=== PATIENT | male | born 1985 | race Caucasian/White ===

== ENCOUNTER 2021-05-22 13:52 | Inpatient (IN) | payer OTHER ==
[~2021-05-22] VITALS: Ht 180.3 cm; Wt 174.6 kg
--- NOTE | 2021-05-22 14:00 | NUR ---
[id number] HOME C/O SOB X 1 MONTH. O2 SAT 80% ON ROOM AIR. CONNECTED TO THE MONITOR AND PULSE OX. KEPT COMFORTABLE, WILL CONTINUE TO MONITOR ACCORDINGLY. ON 02 @ 6LPM VIA NC.
--- NOTE | 2021-05-22 14:05 | NUR ---
CHAPLAIN RESIDENT AT PT'S BEDSIDE
--- NOTE | 2021-05-22 14:18 | NUR ---
COVID TEST COLLECTED AND SENT TO LAB
[2021-05-22 14:24] LABS: BASOPHILS % (AUTO) 0.3 % (0.0-2.0); EOSINOPHILS % (AUTO) 0.9 % (0.0-6.0); HEMATOCRIT 51 % (39-51); HEMOGLOBIN 17.2 g/dL (13.5-17.5); LYMPHOCYTES # (AUTO) 0.8 K/uL (0.8-4.8); LYMPHOCYTES % (AUTO) 10.6 % (20.0-44.0); MEAN CORPUSCULAR HGB CONC 34 g/dl (31.0-36.0); MEAN CORPUSCULAR VOLUME 99 fL (80-96); MONOCYTES # (AUTO) 0.6 K/uL (0.1-1.30); MONOCYTES % (AUTO) 7.8 % (2.0-12.0); NEUTROPHILS # (AUTO) 5.7 K/uL (1.8-8.9); NEUTROPHILS % (AUTO) 80.4 % (43.0-81.0); PLATELET COUNT (AUTO) 137 K/uL (150-450); RED BLOOD CELL COUNT(AUTO) 5.12 MIL/uL (4.5-6.0); WHITE BLOOD COUNT (AUTO) 7.1 K/uL (4.3-11.0)
--- NOTE | 2021-05-22 14:44 | NUR ---
URINE COLLECTED AND SENT TO LAB
[2021-05-22 14:48] LABS: ALANINE AMINOTRANSFERASE 22 U/L (12-78); ALBUMIN 3.4 g/dL (3.4-5.0); ALKALINE PHOSPHATASE 94 U/L (46-116); ASPARTATE AMINOTRANSFERASE 19 U/L (15-37); BILIRUBIN,DIRECT 0.3 mg/dL (0.0-0.2); BILIRUBIN,TOTAL 1.2 mg/dL (0.2-1.0); CALCIUM, SERUM 9.1 mg/dL (8.5-10.1); CHLORIDE 99 mmol/L (98-107); CREATININE 0.9 mg/dL (0.6-1.3); GLUCOSE 149 mg/dL (74-106); POTASSIUM 4.3 mmol/L (3.5-5.1); SODIUM SERUM 142 mmol/L (136-145); TOTAL PROTEIN, SERUM 7.6 g/dL (6.4-8.2); UREA NITROGEN, BLOOD 12 mg/dL (7-18)
[2021-05-22 14:51] LABS: CARBON DIOXIDE 45 mmol/L (21-32)
--- NOTE | 2021-05-22 14:54 | NUR ---
MD AWARE OF PT BP, AWAITING ORDER
[2021-05-22] MEDS ORDERED: ENALAPRILAT INJ (1.25 MG/ML) 1.25 MG/ML VIAL IV ONE ×2 (15:00→15:28)
[2021-05-22] MEDS ORDERED: NITROGLYCERIN PACKET 1 GM PACKET TD ONE (15:00)
[2021-05-22] MEDS ORDERED: NITROGLYCERIN PACKET 1 GM PACKET ONE ×2 (15:00→15:28)
[2021-05-22] MEDS ORDERED: ASPIRIN 325 MG TABLET PO ONE (15:00)
[2021-05-22] MEDS ORDERED: ASPIRIN 325 MG TABLET ONE ×2 (15:00→15:28)
[2021-05-22] MEDS ORDERED: ENALAPRILAT DIHYD. (2.5MG/2ML) 1.25 MG/ML VIAL IV ONE (15:00)
[2021-05-22 15:10] LABS: BILIRUBIN,URINE SMALL (NEGATIVE); COLOR,URINE YELLOW (YELLOW); LEUKOCYTE ESTERASE ,URINE NEGATIVE (NEGATIVE); NITRITE, URINE NEGATIVE (NEGATIVE); PROTEIN,URINE >=300 mg/dl (NEGATIVE); UGLUCOSE NEGATIVE (NEGATIVE)
[2021-05-22 15:16] LABS: BACTERIA,URINE None seen /HPF (None Seen); SQUAMOUS EPITHELIAL CELL,UR 0-2 /HPF (None Seen); URINE AMORPHOUS PHOSPHATES Few /HPF (None Seen); WBC,URINE 0-2 /HPF (0-3)
[2021-05-22 15:17] LABS: MUCUS,URINE Few /LPF (None Seen)
[2021-05-22] MEDS ORDERED: METO25TA20 PO (15:26)
--- NOTE | 2021-05-22 16:31 | NUR ---
SPOKE WITH VIJAYA FROM [facility],AUTHORIZED THE PATIENT TO STAY
--- NOTE | 2021-05-22 16:33 | NUR ---
md aware of blood pressure, awaiting md order
--- NOTE | 2021-05-22 17:03 | NUR ---
BED 114-1 GIVEN
--- NOTE | 2021-05-22 18:09 | NUR ---
REPORT GIVEN TO WALTER CHU FOR ANUJA
--- NOTE | 2021-05-22 18:40 | NUR ---
RN NOTES; RECEIVED PT AT A/0X4, AMBULATORY. CC OF SOB, ON VIA NC AT 6LMP. V/S TAKEN FOLLOWS 98.6, 88, 20, 188/91, SATING AT 97%. PT IS SITTING BY BEDSIDE, STATED HE DOES NOT WANT TO LIE DOWN RIGHT NOW. PT SKIN INTACT. NO C/O PAIN, OR DISTRESS AT THIS TIME. PT STATED HIS HUNGRY, CARDIAC DIET ORDERED. SAFETY MEASURES RENDERED, BED LOCKED, IN LOWEST POS. WITH CALL LIGHT WITHIN REACH. WILL ENDORSE TO PAINTER AND DECORATOR RN.
--- NOTE | 2021-05-22 19:30 | NUR ---
STRATEGIC ACCOUNTS MANAGER NOTE RECEIVED PATIENT IN BED. A/OX3. ON OXYGEN 6L VIA NASAL CANNULA. PATIENT WAS EXPERIENCING SOME SOB, INCREASED TO 8L SIMPLE MASK. NO C/O PAIN. NO APPARENT DISTRESS AT THIS TIME. IV ACCESS IN RAC#18 PATENT AND SALINE LOCKED. TELE MONITOR READS SINUS RHYTHM WITH BBB. HARDWOOD FINISHER OBTAINED VITALS AND COMPLETED BELONGING LIST. PATIENT REPORTS NO SKIN ISSUES. BED IS LOW AND LOCKED, HOB ELEVATED IN HIGH FOWLERS, SIDE RAILS UP X2, CALL LIGHT WITHIN REACH.
[2021-05-22 20:00] VITALS: BP 194/111
--- NOTE | 2021-05-22 20:15 | NUR ---
RN NOTE INFORMED DR. CARDOZO THAT PATIENT DOES NOT HAVE ADMITTING ORDERS. PATIENT BP IS 177/110 HR 95. RECEIVED ORDER FOR HYDRALAZINE 25MG PO Q4PRN FOR SYSTOLIC BP OVER 160. ORDER READ BACK NOTED AND CARRIED OUT.
--- NOTE | 2021-05-22 20:19 | NUR ---
RN NOTE CALLED PHARMACY TO VERIFY MEDICATION FOR HYDRALAZINE.
[2021-05-22] MEDS ORDERED: hydrALAZINE HCL 25 MG TABLET PO PRN (20:30)
[2021-05-22] MEDS: hydrALAZINE HCL 50 MG TABLET PO SCH (20:55)
[2021-05-22] MEDS: CARVEDILOL 12.5 MG TABLET PO SCH (20:55)
[2021-05-22] MEDS ORDERED: ZOLPIDEM TARTRATE 5 MG TABLET PO PRN (21:00)
[2021-05-22] MEDS ORDERED: Z GUARD REMEDY 2 OZ OINT TP PRN (21:00)
[2021-05-22] MEDS ORDERED: BUMETANIDE INJ 6 MG in IV NS 0.9% 36 ML IV ONE (21:00)
[2021-05-22] MEDS ORDERED: MAG HYDROX/AL HYDROX/SIMETH 30 ML UDC PO PRN (21:00)
[2021-05-22] MEDS ORDERED: ONDANSETRON HCL/PF 4 MG/2 ML VIAL IVP PRN (21:00)
[2021-05-22] MEDS: acetaZOLAMIDE SODIUM 500 MG/VIAL VIAL IV SCH (21:01)
[2021-05-22] MEDS: ATORVASTATIN 40 MG TABLET PO SCH (22:37)
[2021-05-22] MEDS: VALSARTAN 80 MG TABLET PO SCH (22:38)
[2021-05-22] MEDS: ENOXAPARIN SODIUM 40 MG/0.4 ML DISP.SYRIN SQ SCH (22:39)
--- NOTE | 2021-05-22 23:45 | NUR ---
RT NOTE PT NOT PLACED ON NOC BIPAP D/T PENDING PCR-RT. CHILD SUPPORT CASE OFFICER NOTIFIED. WILL CONTINUE TO MONITOR T/O SHIFT
[2021-05-23] VITALS: BP 146/72
[2021-05-23] MEDS: NITROGLYCERIN 30 GM TUBE TOP SCH ×4 (01:03→17:03)
[2021-05-23 05:05] VITALS: BP 132/84
--- NOTE | 2021-05-23 06:32 | NUR ---
RN NOTE PATIENT RESTING IN BED, A/O *2 . ON O2 6L. DOES NOT COMPLAIN OF PAIN, AND IS NOT IN DISTRESS. BED LOW, LOCKED, CALL LIGHT WITHIN REACH. ON TELE MONITOR, SR. IV MAINTAINED, WILL ENDORSE ON COMING SHIFT.
[2021-05-23 06:59] LABS: ALBUMIN 3.3 g/dL (3.4-5.0); BILIRUBIN,TOTAL 1.4 mg/dL (0.2-1.0); CALCIUM, SERUM 9.2 mg/dL (8.5-10.1); CREATININE 0.9 mg/dL (0.6-1.3); MAGNESIUM 2.5 mg/dL (1.8-2.4); PHOSPHORUS 4.6 mg/dL (2.5-4.9); POTASSIUM 3.6 mmol/L (3.5-5.1); TOTAL PROTEIN, SERUM 7.7 g/dL (6.4-8.2)
[2021-05-23 07:05] LABS: BASOPHILS # (AUTO) 0.1 K/uL (0.0-0.2); BASOPHILS % (AUTO) 0.7 % (0.0-2.0); EOSINOPHILS % (AUTO) 1.5 % (0.0-6.0); HEMATOCRIT 51 % (39-51); HEMOGLOBIN 17.4 g/dL (13.5-17.5); LYMPHOCYTES # (AUTO) 1.2 K/uL (0.8-4.8); LYMPHOCYTES % (AUTO) 14.2 % (20.0-44.0); MEAN CORPUSCULAR HGB CONC 34 g/dl (31.0-36.0); MEAN CORPUSCULAR VOLUME 99 fL (80-96); MONOCYTES # (AUTO) 1.1 K/uL (0.1-1.30); NEUTROPHILS # (AUTO) 6.2 K/uL (1.8-8.9); NEUTROPHILS % (AUTO) 70.6 % (43.0-81.0); PLATELET COUNT (AUTO) 172 K/uL (150-450); RED BLOOD CELL COUNT(AUTO) 5.14 MIL/uL (4.5-6.0); WHITE BLOOD COUNT (AUTO) 8.8 K/uL (4.3-11.0)
--- NOTE | 2021-05-23 07:34 | NUR ---
RN OPENING NOTES; PT A/OX4, IN BED RESTING. NO C/O PAIN, SOB. NO DISTRESS NOTED. SAFETY MEASURES RENDERED, BED IN LOWEST POS. LOCKED, WITH CALL LIGHT WITHIN REACH. WILL CONTINUE TO MONITOR.
[2021-05-23 08:17] LABS: THYROID STIMULATING HORMONE 0.827 uIU/mL (0.358-3.74)
[2021-05-23] MEDS: ASPIRIN EC 81 MG TABLET.DR PO SCH (08:17)
[2021-05-23] MEDS: VALSARTAN 80 MG TABLET PO SCH ×2 (08:17→22:07)
[2021-05-23] MEDS: hydrALAZINE HCL 50 MG TABLET PO SCH ×3 (08:17→17:03)
[2021-05-23] MEDS: acetaZOLAMIDE SODIUM 500 MG/VIAL VIAL IV SCH (08:18)
[2021-05-23] MEDS: PANTOPRAZOLE 40 MG TABLET.DR PO SCH (08:18)
[2021-05-23] MEDS: CARVEDILOL 12.5 MG TABLET PO SCH ×2 (08:18→17:02)
[2021-05-23 12:34] LABS: ABG BASE EXCESS 13.6 mmol/L; ABG OXYGEN SATURATION 88.7 % (92.0-98.5); ABG PH 7.314 (7.350-7.450); ABG PO2 57.6 mmHg (75.0-100.0); AaDO2 151.2 mmHg; COHb 4.1 % (0.5-1.5); MetHb 0.1 % (0.0-1.5); SITE, ABG Right Radial; VENT MODE, BG NASAL CANNULA
--- NOTE | 2021-05-23 12:43 | NUR ---
RT ABG done, results reported to Dr. Strickland and is aware. Orders are to keep pt as is, awaiting COVID results to proceed with nocturnal BiPAP, and follow up ABG in the AM. No SOB or respiratory distress noted at this time, pt is awake and alert.
--- NOTE | 2021-05-23 18:35 | NUR ---
RN CLOSING NOTES; PT A/OX4, AMBULATORY. NO DISTRESS, NO SOB NOTED. NO C/O PAIN AT THIS TIME. PT ON 02 @6LPM VIA NC. ALL MEDICATION GIVEN AND WELL TOLERATED. PT KEPT CLEAN, DRY, AND COMFORTABLE. ALL SAFETY MEASURES RENDERED, BED LOCKED IN LOWEST POS. WITH CALL LIGHT WITHIN REACH. NO SIGNIFICANT CHANGES TO PT HEALTH STATUS DURING SHIFT. ENDORSED TO JET INSPECTOR RN IN STABLE CONDITION.
--- NOTE | 2021-05-23 19:35 | NUR ---
RN OPENING NOTES: RECEIVED PATIENT FROM DAY SHIFT, PATIENT IN BED, SLEEPING, V/S STABLE, NO SIGNS OF DISTRESS, NO SOB, NC AT 6L, IV ACCESS RT. HAND GAUGE 20 PATENT AND INTACT. BED AT LOWEST POSITION, BRAKES LOCKED, SIDE RAILS UP X2, CALL LIGHT WITHIN REACH,
[2021-05-23 20:00] VITALS: BP 119/62
--- NOTE | 2021-05-23 20:24 | NUR ---
RT NOTE PT IS AWAKE, ALERT AND ORIENTED AT THIS TIME. PT IS CURRENTLY ON 6LPM NASAL CANNULA WITH NO SIGNS OF RESPIRATORY DISTRESS AT THIS TIME. NOC BIPAP ORDER PENDING ON PCR RESULTS PER MD. WILL CONTINUE TO MONITOR PATIENT.
[2021-05-23] MEDS: ENOXAPARIN SODIUM 40 MG/0.4 ML DISP.SYRIN SQ SCH (22:06)
[2021-05-23] MEDS: ATORVASTATIN 40 MG TABLET PO SCH (22:07)
[2021-05-24] VITALS (20 sets, daily range): BP systolic 105–172; BP diastolic 44–99
[2021-05-24] MEDS: NITROGLYCERIN 30 GM TUBE TOP SCH ×4 (00:35→17:44)
--- NOTE | 2021-05-24 04:15 | NUR ---
RT NOTE PT IS CURRENTLY ASLEEP AT THIS TIME. NO SIGNS OF RESPIRATORY DISTRESS. SPO2 IS AT 90-91% ON 6LPM NASAL CANNULA. ABLE TO WAKE UP PATIENT WITH VERBAL STIMULI. WILL CONTINUE TO MONITOR PATIENT. PCR STILL PENDING AT THIS TIME.
--- NOTE | 2021-05-24 06:42 | NUR ---
RN CLOSING NOTES: PATIENT IS SLEEPING IN BED, V/S WNL, SATURATION 93% ON NC 6L, TELE SHOWS SR. A/O X4, AMBULATORY, SKIN INTACT, ON CARDIAC DIET, RT AC #18 PATENT AND INTACT, FLUSHED WITH SALINE, USES URINAL, LABS WNL, BEDBOUND, . PATIENT HAS CALL LIGHT WITHIN REACH, BED AT LOWEST POSITION AND LOCKED, SIDE RAILS UP X2, WILL CONTINUE TO MONITOR AND ENDORSE TO DAY SHIFT NURSE. TITRATE O2 NEEDED.
[2021-05-24 06:53] LABS: BASOPHILS # (AUTO) 0.1 K/uL (0.0-0.2); BASOPHILS % (AUTO) 0.9 % (0.0-2.0); EOSINOPHILS % (AUTO) 2.1 % (0.0-6.0); HEMATOCRIT 48 % (39-51); HEMOGLOBIN 16.3 g/dL (13.5-17.5); LYMPHOCYTES # (AUTO) 1.1 K/uL (0.8-4.8); LYMPHOCYTES % (AUTO) 12.6 % (20.0-44.0); MEAN CORPUSCULAR HGB CONC 34 g/dl (31.0-36.0); MEAN CORPUSCULAR VOLUME 99 fL (80-96); MONOCYTES # (AUTO) 0.8 K/uL (0.1-1.30); MONOCYTES % (AUTO) 9.6 % (2.0-12.0); NEUTROPHILS # (AUTO) 6.2 K/uL (1.8-8.9); NEUTROPHILS % (AUTO) 74.8 % (43.0-81.0); PLATELET COUNT (AUTO) 164 K/uL (150-450); RED BLOOD CELL COUNT(AUTO) 4.86 MIL/uL (4.5-6.0); WHITE BLOOD COUNT (AUTO) 8.3 K/uL (4.3-11.0)
[2021-05-24 07:03] LABS: ALBUMIN 3.1 g/dL (3.4-5.0); BILIRUBIN,TOTAL 0.9 mg/dL (0.2-1.0); CALCIUM, SERUM 8.8 mg/dL (8.5-10.1); MAGNESIUM 2.2 mg/dL (1.8-2.4); PHOSPHORUS 4.6 mg/dL (2.5-4.9); POTASSIUM 3.9 mmol/L (3.5-5.1); TOTAL PROTEIN, SERUM 7.2 g/dL (6.4-8.2)
--- NOTE | 2021-05-24 07:30 | NUR ---
RN OPENING NOTES RECEIVED PATIENT IN BED PT IS AXO X 4. BREATHNG IS EVEN AND NON LABORED. NO SIGNS OF DISTRESS, NO SOB, NC AT 6L, IV ACCESS RT. HAND GAUGE 20 PATENT AND INTACT AND PATENT.BED AT LOWEST POSITION, BRAKES LOCKED, SIDE RAILS UP X2, ALL SAFE MEASURE PROVIDED.CALL LIGHT WITHIN REACH, WILL CONTINUE TO MONITOR.
--- NOTE | 2021-05-24 07:30 | NUR ---
RN NOTES RECEIVED PT AWAKE, A/O X4., VERBALLY RESPONSIVE AND ABLE TO MAKE NEEDS KNOWN. ON 6L O2 VIA NASAL CANNULA, NO RESPIRATORY DISTRESS. ON TELE MONITOR READING SR. AMBULATORY, URINAL PROVIDED. SAFETY MEASURES IN PLACE. IV LINE INTACT. WILL CONTINUE TO MONITOR.
--- NOTE | 2021-05-24 07:50 | NUR ---
RT OBTAINED AN ABG PER MD ORDER, ABG ON 6L NC, ABG RESULTS RELAYED TO DR RASHID. AWAITING REPLY. Addendum: 05/24/21 at 0816 by KELLY BARRAZA RT PT IS AWAKE ALERT AND NOT COMPLAINING OF ANY SOB
[2021-05-24 08:14] LABS: ABG BASE EXCESS 9.3 mmol/L; ABG OXYGEN SATURATION 93.1 % (92.0-98.5); ABG PCO2 102.3 mmHg (35.0-45.0); ABG PH 7.237 (7.350-7.450); ABG PO2 71.7 mmHg (75.0-100.0); AaDO2 132.8 mmHg; COHb 2.7 % (0.5-1.5); MetHb 0.3 % (0.0-1.5); O2Hb 90.3 % (94.0-97.0); SITE, ABG Left Radial; VENT MODE, BG Nasal Cannula
--- NOTE | 2021-05-24 08:30 | NUR ---
RN NOTES PER CHARGE NURSE, RECEIVED CALL FROM MD TO TRANSFER PATIENT TO ICU FOR BIPAP TREATMENT S/T ABNORMAL ABG VALUES.
--- NOTE | 2021-05-24 08:40 | NUR ---
RN NOTES PATIENT TRANSFER TO ICU #[id number], VITAL SINGS STABLE AND BREATHING EVEN AND NONLABORED NO DISTRESS NOTED. NO S/S OF PAIN AND ANY DISCOMFORT NOTED AT THIS TIME.GAVE TO REPORT TO ICU NURSE
--- NOTE | 2021-05-24 08:55 | NUR ---
ICU NOTES RECEIVED PT DROM LIBERTY. AWAKE, A/O X4. ON 6L O2 VIA NASAL CANNULA. NO SOB. NO PAIN REPORTED AT THIS TIME. CONNECTED TO THE MONITOR READING SR. USES URINAL. AMBULATORY. SWITCHED TO BIPAP. TOLERATING SETTINGS WELL. SAFETY MEASURES IN PLACE. CALL LIGHT WITHIN REACH. BED LOCKED AND IN LOWEST POSITION WITH SIDE RAILS UP X2. WILL CONTINUE TO MONITOR.
[2021-05-24] MEDS: VALSARTAN 80 MG TABLET PO SCH ×2 (09:07→21:00)
[2021-05-24] MEDS: ASPIRIN EC 81 MG TABLET.DR PO SCH (09:08)
[2021-05-24] MEDS: hydrALAZINE HCL 50 MG TABLET PO SCH ×3 (09:08→16:42)
[2021-05-24] MEDS: CARVEDILOL 12.5 MG TABLET PO SCH ×2 (09:08→16:41)
[2021-05-24] MEDS: PANTOPRAZOLE 40 MG TABLET.DR PO SCH (09:08)
[2021-05-24] MEDS ORDERED: BUMETANIDE INJ 6 MG in IV D5W 36 ML IV ONE (09:30)
--- NOTE | 2021-05-24 09:30 | NUR ---
RN NOTES [facility] ON HOLD. DR. WEST AND DR. RASHID AWARE. PT IN ON BIPAP.
[2021-05-24 12:02] LABS: ABG BASE EXCESS 10.1 mmol/L; ABG OXYGEN SATURATION 95.4 % (92.0-98.5); ABG PCO2 87.3 mmHg (35.0-45.0); ABG PH 7.296 (7.350-7.450); AaDO2 176.3 mmHg; COHb 2.6 % (0.5-1.5); MetHb 0.3 % (0.0-1.5); O2Hb 92.6 % (94.0-97.0); SITE, ABG Right Radial; VENT MODE, BG BIPAP 20/5 R4 50%
--- NOTE | 2021-05-24 18:58 | NUR ---
RN NOTES PT RESTING IN BED. NO SIGNIFICANT CHANGES THROUGHOUT THE SHIFT. ON BIPAP TOLERATING SETTINGS WELL. NO SOB. NO PAIN REPORTED AT THIS TIME. ALL DUE MEDS GIVEN. NEEDS ATTENDED. KEPT CLEAN AND COMFORTABLE. SAFETY MEASURES IN PLACE. CALL LIGHT WITHIN REACH. WILL ENDORSE TO NIGHT RN FOR ANUJA.
--- NOTE | 2021-05-24 20:19 | NUR ---
ICU NOTES RECEIVED PT FROM ELMO CHU. AWAKE, A/O X4. ON BIPAP 20/5 RATE 4 FIO2 50%. TOLERATING SETTINGS WELL. NO SOB. NO PAIN REPORTED AT THIS TIME. MONITOR READING SR. RIGHT AC GAGUE 18 IV FLUSHED. NO S/S OF INFILTRATION. PT ABLE TO USE URINAL. AMBULATORY. SAFETY MEASURES IN PLACE. CALL LIGHT WITHIN REACH. BED LOCKED AND IN LOWEST POSITION WITH SIDE RAILS UP X2. WILL CONTINUE TO MONITOR.
[2021-05-24] MEDS: FUROSEMIDE 40 MG/4 ML VIAL IV SCH (21:00)
[2021-05-24] MEDS: ATORVASTATIN 40 MG TABLET PO SCH (21:02)
[2021-05-24] MEDS: ACETAMINOPHEN 325 MG TABLET PO PRN (21:02)
[2021-05-24] MEDS: ENOXAPARIN SODIUM 40 MG/0.4 ML DISP.SYRIN SQ SCH (21:11)
[2021-05-25] VITALS (18 sets, daily range): BP systolic 103–166; BP diastolic 45–88
--- NOTE | 2021-05-25 04:38 | NUR ---
ICU NOTE: PT REQUEST TO BE TAKEN OFF BIPAP. PLACED ON 4L NASAL CANNULA. TOLERATING @ 92% SPO2 @ THIS TIME. WILL CONTINUE TO MONITOR CLOESLY.
[2021-05-25 04:41] LABS: BASOPHILS % (AUTO) 0.5 % (0.0-2.0); EOSINOPHILS % (AUTO) 1.9 % (0.0-6.0); HEMATOCRIT 50 % (39-51); LYMPHOCYTES # (AUTO) 1.1 K/uL (0.8-4.8); LYMPHOCYTES % (AUTO) 14.2 % (20.0-44.0); MEAN CORPUSCULAR HGB CONC 34 g/dl (31.0-36.0); MEAN CORPUSCULAR VOLUME 99 fL (80-96); MONOCYTES # (AUTO) 0.8 K/uL (0.1-1.30); MONOCYTES % (AUTO) 10.2 % (2.0-12.0); NEUTROPHILS # (AUTO) 5.8 K/uL (1.8-8.9); NEUTROPHILS % (AUTO) 73.2 % (43.0-81.0); PLATELET COUNT (AUTO) 170 K/uL (150-450); RED BLOOD CELL COUNT(AUTO) 5.06 MIL/uL (4.5-6.0)
[2021-05-25 04:49] LABS: ALBUMIN 3.2 g/dL (3.4-5.0); CALCIUM, SERUM 9.3 mg/dL (8.5-10.1); CREATININE 1.1 mg/dL (0.6-1.3); MAGNESIUM 2.1 mg/dL (1.8-2.4); PHOSPHORUS 3.9 mg/dL (2.5-4.9); POTASSIUM 3.7 mmol/L (3.5-5.1); TOTAL PROTEIN, SERUM 7.1 g/dL (6.4-8.2)
--- NOTE | 2021-05-25 05:53 | NUR ---
ICU NOTE: PER PT REQUEST PLACED BACK ON BIPAP. WILL CONTINUE TO MONITOR.
[2021-05-25] MEDS: NITROGLYCERIN 30 GM TUBE TOP SCH ×3 (06:06→12:00)
--- NOTE | 2021-05-25 07:10 | NUR ---
ICU NOTES RECEIVED PT RESTING IN BED. ON BIPAP 20/5 RATE: 4 FIO2: 50%, TOLERATING SETTINGS WELL. NO SOB OR ANY S/S OF ACUTE RESPIRATORY DISTRESS NOTED. NO PAIN REPORTED AT THIS TIME. SR ON THE MONITOR. IV ACCESS ON RAC #18 INTACT, PATENT AND FLUSHED. USES URINAL. CARDIAC DIET. SAFETY MEASURES IN PLACE. CALL LIGHT WITHIN REACH. BED LOCKED AND IN LOWEST POSITION WITH SIDE RAILS UP X2. WILL CONTINUE TO MONITOR.
[2021-05-25] MEDS: FUROSEMIDE 40 MG/4 ML VIAL IV SCH (08:26)
[2021-05-25] MEDS: PANTOPRAZOLE 40 MG TABLET.DR PO SCH (08:26)
[2021-05-25] MEDS: VALSARTAN 80 MG TABLET PO SCH (08:27)
[2021-05-25] MEDS: hydrALAZINE HCL 50 MG TABLET PO SCH ×2 (08:27→13:57)
[2021-05-25] MEDS: ASPIRIN EC 81 MG TABLET.DR PO SCH (08:27)
[2021-05-25] MEDS: CARVEDILOL 12.5 MG TABLET PO SCH (08:27)
[2021-05-25] MEDS: ACETAMINOPHEN 325 MG TABLET PO PRN (08:28)
[2021-05-25 10:08] LABS: ABG BASE EXCESS 14.2 mmol/L; ABG OXYGEN SATURATION 91.6 % (92.0-98.5); ABG PCO2 89.8 mmHg (35.0-45.0); ABG PH 7.327 (7.350-7.450); ABG PO2 62.9 mmHg (75.0-100.0); AaDO2 89.6 mmHg; COHb 2.3 % (0.5-1.5); MetHb 0.3 % (0.0-1.5); O2Hb 89.2 % (94.0-97.0); SITE, ABG Right Radial; VENT MODE, BG nasal cannula
--- NOTE | 2021-05-25 10:08 | NUR ---
Spoke to nurse regardng ccta of heart, she stated she would get back to me. DAVID
--- NOTE | 2021-05-25 12:10 | NUR ---
ICU NOTES BROUGHT PT TO RADIOLOGY DEPT. FOR [facility]CA. VS STABLE. ON 4L O2 VIA NC. NO SOB OR ANY DISTRESS.
--- NOTE | 2021-05-25 12:15 | NUR ---
ICU NOTES PT WAS BROUGHT BACK TO ROOM. PT REFUSED [facility]. EXPLAINED RISK AND BENEFITS OF DOING THE PROCEDURE. PT STILL REFUSED DESPITE EDUCATION. AWARE.
[2021-05-25] MEDS ORDERED: NITROGLYCERIN 0.4 MG/TAB BOTTLE SL ONE (12:30)
[2021-05-25] MEDS ORDERED: METOPROLOL TARTRATE INJ 5 MG/5 ML AMPUL IVP PRN (12:30)
--- NOTE | 2021-05-25 13:00 | NUR ---
ICU NOTES DR QUINTANILLA AT BEDSIDE. PT STATES HE WANTS TO GO HOME DESPITE MD ADVICE. PT WANTS TO GO AMA. EXPLAINED RISK AND BENEFITS OF COMPLIANCE TO TREATMENT. VERBALIZED UNDERSTANDING, STILL REFUSED DESPITE EDUCATION.
--- NOTE | 2021-05-25 13:10 | NUR ---
ICU NOTES PT SIGNED AMA FORM, AWARE.
--- NOTE | 2021-05-25 15:45 | NUR ---
ICU NOTES PT WANTS TO GO HOME NOW. PT CALLED FAMILY MEMBER TO PICK HIM UP. AWARE. EDUCATION ABOUT LEAVING AMA WAS PROVIDED TO PT. VERBALIZED UNDERSTANDING AND STILL DECIDED TO GO HOME. PT WAS BROUGHT TO LOBBY VIA WHEELCHAIR. WENT HOME VIA PRIVATE CARE ACCOMPANIED BY MOM. Addendum: 05/25/21 at 1619 by JILL WETZEL RN IV LINE REMOVED ASEPTICALLY. SKIN IS INTACT. INCIDENT REPORT ON FILE. ID: [id number]
== END 2021-05-25 15:56 | disposition left against medical advice (07) | DRG 133 ==
LOC: ER 14:06 → TELE1 16:59 → ICU 05-24 08:43
PROVIDERS: ADMIT Nurse Practitioner Acute Care
DX: J96.21 Acute and chronic respiratory failure with hypoxia (principal); I21.A1 Myocardial infarction type 2; I50.33 Acute on chronic diastolic (congestive) heart failure; E87.2 Acidosis; D69.6 Thrombocytopenia, unspecified; E66.2 Morbid (severe) obesity with alveolar hypoventilation; I11.0 Hypertensive heart disease with heart failure; Z68.43 Body mass index [BMI] 50.0-59.9, adult; J96.22 Acute and chronic respiratory failure with hypercapnia; F17.210 Nicotine dependence, cigarettes, uncomplicated; D75.89 Other specified diseases of blood and blood-forming organs; J44.9 Chronic obstructive pulmonary disease, unspecified; Z20.822 Contact with and (suspected) exposure to COVID-19; K75.81 Nonalcoholic steatohepatitis (NASH)
CPT/HCPCS: 36415; 36600; 71045-TC; 80048-TC; 80053-TC; 80061-TC; 80076-TC; 81001; 82803-TC; 83540-TC; 83605-TC; 83735-TC; 83880; 84100-TC; 84443-TC; 84484-TC; 85025-TC; 85730-TC; 87040-TC; 87081-TC; 87086-TC; 93307-TC; 94760-TC; 94799-TC; G0378; J1120; J1650; J1940; J3490; J7060; U0003

== ENCOUNTER 2022-11-23 04:14 | Inpatient (IN) | payer OTHER ==
[2022-11-23] VITALS (15 sets, daily range): BP systolic 97–146; BP diastolic 57–89
[~2022-11-23] VITALS: Ht 172.7 cm; Wt 195.0 kg
[~2022-11-23 04:14] MED LIST: METO25TA20 PO
--- NOTE | 2022-11-23 04:18 | NUR ---
RT AT BEDSIDE, PT PLACED ON BIPAP IMMEDIATELY UPON ARRIVAL W/ SETTINGS 24/5, RATE 20, 100% FiO2.
--- NOTE | 2022-11-23 04:18 | NUR ---
BIBRA39 FR HOME / SOB, TRIPOD POSITION UPON EMS ARRIVAL, GIVEN NITRO SPRAY X3. HR 120s, 75% ON RA, PLACED ON 15L NRB. TO ER 11 FOR EVAL. AT BEDSIDE.
--- NOTE | 2022-11-23 04:25 | NUR ---
PT ARRIVED W/ HOME MEDS IN A BAG: CARVEDILOL, AMLODIPINE, HYDRALAZINE, BUMETANIDE, ENTRESTO, AND ONE VIAL OF UNKNOWN MEDICATION (LABEL IN FOREIGN LANGUAGE).
--- NOTE | 2022-11-23 04:28 | NUR ---
20GA TO RIGHT AC ESTABLISHED. BLOOD WORK COLLECTED, SENT TO LAB.
[2022-11-23] MEDS ORDERED: methylPREDNISolone SOD SUCC 125 MG/2ML VIAL IV ONE (04:30)
[2022-11-23] MEDS ORDERED: FUROSEMIDE 40 MG/4 ML VIAL IV ONE ×2 (04:30→09:00)
--- NOTE | 2022-11-23 04:42 | NUR ---
RT NOTE Pt rec'd on NRB mask at 15LPM via FD. Pt lethargic and showed accessory muscle usage. Diminished breath sounds heard bilaterally. Pt placed on bipap on noted settings per md orders. abg to be taken within 1 hr. Alarms are set and audible. Ambu bag at bedside. Bipap plugged into red outlet.
[2022-11-23] MEDS ORDERED: FUROSEMIDE 40 MG/4 ML VIAL ONE ×2 (04:50→08:47)
[2022-11-23] MEDS ORDERED: methylPREDNISolone SOD SUCC 125 MG/2ML VIAL ONE (04:50)
[2022-11-23 05:00] LABS: BASOPHILS # (AUTO) 0.1 K/uL (0.0-0.2); BASOPHILS % (AUTO) 1.1 % (0.0-2.0); EOSINOPHILS % (AUTO) 0.6 % (0.0-6.0); HEMATOCRIT 45 % (39-51); HEMOGLOBIN 14.5 g/dL (13.5-17.5); LYMPHOCYTES % (AUTO) 11.5 % (20.0-44.0); MEAN CORPUSCULAR HGB CONC 32 g/dl (31.0-36.0); MEAN CORPUSCULAR VOLUME 97 fL (80-96); MONOCYTES # (AUTO) 0.5 K/uL (0.1-1.30); MONOCYTES % (AUTO) 5.7 % (2.0-12.0); NEUTROPHILS # (AUTO) 6.9 K/uL (1.8-8.9); NEUTROPHILS % (AUTO) 81.1 % (43.0-81.0); PLATELET COUNT (AUTO) 144 K/uL (150-450); RED BLOOD CELL COUNT(AUTO) 4.65 MIL/uL (4.5-6.0); WHITE BLOOD COUNT (AUTO) 8.5 K/uL (4.3-11.0)
[2022-11-23] MEDS ORDERED: NITROGLYCERIN 0.4 MG/TAB BOTTLE SL ONE (05:00)
[2022-11-23 05:19] LABS: CALCIUM, SERUM 9.7 mg/dL (8.5-10.1); CHLORIDE 99 mmol/L (98-107); CREATININE 0.8 mg/dL (0.6-1.3); GLUCOSE 186 mg/dL (74-106); POTASSIUM 4.7 mmol/L (3.5-5.1); SODIUM SERUM 142 mmol/L (136-145); UREA NITROGEN, BLOOD 12 mg/dL (7-18)
[2022-11-23 05:23] LABS: CARBON DIOXIDE 51 mmol/L (21-32)
[2022-11-23 05:31] LABS: ALANINE AMINOTRANSFERASE 23 U/L (12-78); ALBUMIN 3.7 g/dL (3.4-5.0); ALKALINE PHOSPHATASE 60 U/L (46-116); ASPARTATE AMINOTRANSFERASE 14 U/L (15-37); BILIRUBIN,DIRECT 0.3 mg/dL (0.0-0.2); TOTAL PROTEIN, SERUM 7.6 g/dL (6.4-8.2)
[2022-11-23 05:43] LABS: ABG BASE EXCESS 19.9 mmol/L; ABG PCO2 159.8 mmHg (35.0-45.0); ABG PO2 204.8 mmHg (75.0-100.0); COHb 2.1 % (0.5-1.5); MetHb 0.6 % (0.0-1.5); O2Hb 96.3 % (94.0-97.0); SITE, ABG Right Radial; VENT MODE, BG ST 24/5 R 20 100%
--- NOTE | 2022-11-23 05:56 | NUR ---
TROPONIN 167. DR. HEBERT AWARE.
[2022-11-23] MEDS ORDERED: ASPIRIN 325 MG TABLET PO ONE (06:00)
[2022-11-23] MEDS ORDERED: LABETALOL 20 MG/4 ML VIAL IV PRN (06:00)
[2022-11-23] MEDS ORDERED: ACETAMINOPHEN 325 MG TABLET PO PRN (06:00)
[2022-11-23] MEDS ORDERED: IPRATROPIUM/ALBUTEROL INHALER IH SCH (06:00)
[2022-11-23] MEDS ORDERED: SODIUM BICARBONATE SYR 50 MEQ/50 ML DISP.SYRIN IV ONE (06:00)
[2022-11-23] MEDS ORDERED: ALBUTEROL FS 2.5 MG/0.5 ML VIAL.NEB NEB PRN (06:00)
[2022-11-23] MEDS ORDERED: MORPHINE SULFATE INJ 2 MG/ML DISP.SYRIN IV PRN (06:00)
[2022-11-23] MEDS ORDERED: ONDANSETRON HCL/PF 4 MG/2 ML VIAL IVP PRN (06:00)
[2022-11-23] MEDS ORDERED: SODIUM BICARBONATE SYR 50 MEQ/50 ML DISP.SYRIN ONE (06:02)
[2022-11-23] MEDS ORDERED: ASPIRIN 325 MG TABLET ONE (06:02)
--- NOTE | 2022-11-23 06:10 | NUR ---
Pt care continue as he received Sodium Bicarb 50Meq IVP with ASA 325mg PO. Pt care continue.
--- NOTE | 2022-11-23 07:27 | NUR ---
Pt care continue as report is given to the AM receving nurse.
--- NOTE | 2022-11-23 08:07 | NUR ---
ALIA SISTER [phone]
[2022-11-23 08:25] LABS: ABG PCO2 181.5 mmHg (35.0-45.0); ABG PH 7.128 (7.350-7.450); ABG PO2 167.3 mmHg (75.0-100.0); COHb 2.2 % (0.5-1.5); MetHb 0.7 % (0.0-1.5); O2Hb 95.9 % (94.0-97.0); SITE, ABG Right Radial
--- NOTE | 2022-11-23 08:42 | NUR ---
pelaez catheter inserted.
--- NOTE | 2022-11-23 08:58 | NUR ---
IV PUSH LASIX 80MG SLOWLY OREDERED.
[2022-11-23] MEDS ORDERED: HYDR-4077 PO (09:26)
[2022-11-23] MEDS ORDERED: SACU1TAB7 PO (09:26)
[2022-11-23] MEDS ORDERED: CARV25TA2 PO (09:26)
[2022-11-23] MEDS ORDERED: AMLO-212 PO (09:26)
[2022-11-23] MEDS ORDERED: BUME1TAB8 PO (09:26)
--- NOTE | 2022-11-23 09:34 | NUR ---
LAITH SISTER [phone]
--- NOTE | 2022-11-23 09:47 | NUR ---
PT GOING TO ROOM 260 ICU
--- NOTE | 2022-11-23 09:54 | NUR ---
report given to VLAD JARA
--- NOTE | 2022-11-23 10:07 | NUR ---
RN NOTES RECEIVED PT FROM ET , LETHARGIC , ORIENTED TO SELF ONLY, FOLLOWS SIMPLE COMMAND, ON TELE SR HR IN 90'S , ON BIPAP , TOLERATING THE SETTING WELL, 02 SAT WNL, ALEX DRAINING TO GRAVITY WITH CHATA COLOR URINE, IV SITE CDI, , SR UP x3 , CALL LIGHT WITHIN EASY REACH, BED LOCKED AND IN LOWEST POSITION, CONTINUE TO MONITOR
[2022-11-23] MEDS: FUROSEMIDE 40 MG/4 ML VIAL IV SCH (10:27)
[2022-11-23] MEDS: HEPARIN SODIUM, PORCINE 5000 UNITS/1 ML VIAL SQ SCH ×2 (10:28→22:19)
[2022-11-23 12:10] LABS: ABG BASE EXCESS 19.5 mmol/L; ABG OXYGEN SATURATION 95.4 % (92.0-98.5); ABG PCO2 147.4 mmHg (35.0-45.0); ABG PH 7.197 (7.350-7.450); ABG PO2 84.9 mmHg (75.0-100.0); AaDO2 180.8 mmHg; COHb 2.8 % (0.5-1.5); MetHb 0.3 % (0.0-1.5); O2Hb 92.4 % (94.0-97.0); SITE, ABG Right Radial
[2022-11-23] MEDS: IPRATROPIUM NEB FS 0.5 MG/2.5 ML AMPUL.NEB NEB SCH ×4 (12:15→23:26)
[2022-11-23] MEDS: ALBUTEROL FS 2.5 MG/0.5 ML VIAL.NEB NEB SCH ×4 (12:24→23:26)
--- NOTE | 2022-11-23 18:47 | NUR ---
RN NOTES PT ON BIPAP , MORE ALERT, FOLLOWS COMMAND, TOLERATING BIPAP SETTING WELL, O2 SAT WNL, WILL ENDORSE TO BIOMASS POWER PLANT MANAGER NURSE FOR CONTINUITY OF CARE .
--- NOTE | 2022-11-23 19:46 | NUR ---
DIGITAL CONTENT COORDINATOR. INITIAL ASSESSMENT. RECEIVED THE PT REST IN BED. AWAKE, LETHARGIC. BIPAP ON. TASSEL MAKING MACHINE OPERATOR SHOWING NSR. IV RT AND LT HAND 20G. SALINE LOCK. OXYGEN BIPAP ON. SETTINGS 24/5, RATE 24, FIO2 60%. SAT 92%. HOB ELEVATED. WILL CONTINUE TO MONITOR VITALS.
[2022-11-23 21:31] LABS: ABG BASE EXCESS 17.5 mmol/L; ABG OXYGEN SATURATION 92.9 % (92.0-98.5); ABG PCO2 86.5 mmHg (35.0-45.0); ABG PH 7.361 (7.350-7.450); ABG PO2 64.8 mmHg (75.0-100.0); AaDO2 267.9 mmHg; COHb 2.2 % (0.5-1.5); MetHb 0.3 % (0.0-1.5); O2Hb 90.6 % (94.0-97.0); SITE, ABG Right Femoral
--- NOTE | 2022-11-23 21:34 | NUR ---
STAT ABG DONE RN NOTIFIED WITH THE RESULT. PT AWAKE AND ALERT ON BIPAP.
[2022-11-24] VITALS (25 sets, daily range): BP systolic 122–168; BP diastolic 60–121
[2022-11-24] MEDS: ALBUTEROL FS 2.5 MG/0.5 ML VIAL.NEB NEB SCH ×6 (03:36→23:24)
[2022-11-24] MEDS: IPRATROPIUM NEB FS 0.5 MG/2.5 ML AMPUL.NEB NEB SCH ×6 (03:36→23:24)
--- NOTE | 2022-11-24 03:36 | NUR ---
RECYCLING TECHNICIAN. AM CARE GIVEN. REMAINING SAME OXYGEN TOLERATED WELL. SAT 98% NO ACUTE DISTRESS NOTED. NURSE HEALTHCARE MANAGER SHOWING NSR. IV RT AND LT HAND. TKO ON. HOB ELEVATED, FC PATENT. URINE DRAINING. WILL CONTINUE TO MONITOR VITALS,
[2022-11-24 05:22] LABS: BASOPHILS % (AUTO) 0.2 % (0.0-2.0); EOSINOPHILS % (AUTO) 0.2 % (0.0-6.0); HEMATOCRIT 40 % (39-51); HEMOGLOBIN 13.2 g/dL (13.5-17.5); LYMPHOCYTES # (AUTO) 0.9 K/uL (0.8-4.8); LYMPHOCYTES % (AUTO) 12.1 % (20.0-44.0); MEAN CORPUSCULAR HGB CONC 33 g/dl (31.0-36.0); MEAN CORPUSCULAR VOLUME 95 fL (80-96); MONOCYTES # (AUTO) 0.7 K/uL (0.1-1.30); MONOCYTES % (AUTO) 9.9 % (2.0-12.0); NEUTROPHILS # (AUTO) 5.6 K/uL (1.8-8.9); NEUTROPHILS % (AUTO) 77.6 % (43.0-81.0); PLATELET COUNT (AUTO) 121 K/uL (150-450); RED BLOOD CELL COUNT(AUTO) 4.21 MIL/uL (4.5-6.0); WHITE BLOOD COUNT (AUTO) 7.2 K/uL (4.3-11.0)
[2022-11-24 05:28] LABS: ALBUMIN 3.2 g/dL (3.4-5.0); BILIRUBIN,TOTAL 0.9 mg/dL (0.2-1.0); CALCIUM, SERUM 9.8 mg/dL (8.5-10.1); CREATININE 0.8 mg/dL (0.6-1.3); MAGNESIUM 1.8 mg/dL (1.8-2.4); PHOSPHORUS 2.5 mg/dL (2.5-4.9); POTASSIUM 3.9 mmol/L (3.5-5.1); TOTAL PROTEIN, SERUM 6.6 g/dL (6.4-8.2)
--- NOTE | 2022-11-24 07:17 | NUR ---
INSTITUTIONAL COMMODITY ANALYST NOTE Patient is resting in bed and complained mouth dryness. residential monitor showed SR HR 86/min. SBP>90mmHg without vasopressor use. On BiPAP, SpO2 96% with FiO2 0.6. No respiratory distress noted. Emmanuel is in-situ, collecting clear and pinkish urine. Left AC IV site is dry and intact, patent with NS flush. Will continue monitoring.
--- NOTE | 2022-11-24 07:30 | NUR ---
pt. is awake and alert placed into nasal cannula @ 2 lpm o2 flow. bipap on stand by @ bedside Addendum: 11/24/22 at 0731 by PAXTON AUGUST RT Amended: Links added.
--- NOTE | 2022-11-24 07:40 | NUR ---
agricultural lender note Patient desaturated to 78% with 2L oxygen via NC, no respiratory distress observed or reported. Put patient back on BiPAP support and titrate FiO2 to 0.5(from 0.6). Will keep observation.
--- NOTE | 2022-11-24 08:22 | NUR ---
BAG END SEWER NOTE Patient complained mouth dryness, ice chips are given. Explained to patient that we couldn't give him ice chips frequently for the risk of aspiration and quick desaturation without BIPAP.
[2022-11-24] MEDS: FUROSEMIDE 40 MG/4 ML VIAL IV SCH (08:28)
[2022-11-24] MEDS: HEPARIN SODIUM, PORCINE 5000 UNITS/1 ML VIAL SQ SCH ×2 (08:30→21:34)
--- NOTE | 2022-11-24 08:53 | NUR ---
placed into bipap due to desaturation Addendum: 11/24/22 at 0854 by PAXTON AUGUST RT Amended: Links added.
--- NOTE | 2022-11-24 15:45 | NUR ---
placed silicone faced foam between bipap mask and nosebridge to prevent skin breakdown. Addendum: 11/24/22 at 1546 by PAXTON AUGUST RT Amended: Links added.
[2022-11-24] MEDS: hydrALAZINE HCL 50 MG TABLET PO SCH (17:10)
[2022-11-24] MEDS: CARVEDILOL 12.5 MG TABLET PO SCH (17:10)
--- NOTE | 2022-11-24 18:29 | NUR ---
SHERIFFS DETECTIVE NOTE Erroneous entrance of patient's output. Patient did not pass any urine in this shift. Addendum: 11/24/22 at 1927 by NILESH NEUMANN RN Patient passed 3600mL urine in this shift. Oral intake around 500mL. Advised patient not to consume too much fluid. Ice chips are given multiple times today. Patient tolerated sit out well thrice.
--- NOTE | 2022-11-24 23:54 | NUR ---
PARKING LOT MANAGER OPENING NOTE PT RECEIVED IN BED, AWAKE, A/O X4, APPEARS ANXIOUS BUT COOPERATIVE OVERALL. PT ON BIPAP WITH SETTING OF 24/5, RATE 24, FIO2 70% WITH CURRENT O2SAT OF 96%; NO S/S OF RESP DISTRESS, NO SOB, NON-LABORED AND EQUAL BREATHING. PT ATTACHED TO BEDSIDE MONITOR, SR WITH HR OF 64. ALEX INTACT AND PATENT, DRAINING CLEAR AND YELLOW URINE. LIO MIDLINE INTACT AND PATENT, FLUSHES EASILY WITH NO RESISTANCE; NO MEDS/FLUIDS INFUSING THROUGH. BED IN LOWEST POSITION, CALL LIGHT WITHIN REACH, SIDE RAILS UP X3. WILL CONTINUE TO MONITOR THROUGHOUT THE NIGHT.
[2022-11-25] VITALS (16 sets, daily range): BP systolic 128–189; BP diastolic 72–118
[2022-11-25] MEDS: ALBUTEROL FS 2.5 MG/0.5 ML VIAL.NEB NEB SCH ×4 (03:32→15:20)
[2022-11-25] MEDS: IPRATROPIUM NEB FS 0.5 MG/2.5 ML AMPUL.NEB NEB SCH ×4 (03:32→15:20)
[2022-11-25 04:28] LABS: BASOPHILS % (AUTO) 0.3 % (0.0-2.0); EOSINOPHILS % (AUTO) 1.1 % (0.0-6.0); HEMATOCRIT 39 % (39-51); LYMPHOCYTES % (AUTO) 16.8 % (20.0-44.0); MEAN CORPUSCULAR HGB CONC 33 g/dl (31.0-36.0); MEAN CORPUSCULAR VOLUME 94 fL (80-96); MONOCYTES # (AUTO) 0.6 K/uL (0.1-1.30); MONOCYTES % (AUTO) 10.2 % (2.0-12.0); NEUTROPHILS # (AUTO) 4.4 K/uL (1.8-8.9); NEUTROPHILS % (AUTO) 71.6 % (43.0-81.0); PLATELET COUNT (AUTO) 122 K/uL (150-450); RED BLOOD CELL COUNT(AUTO) 4.15 MIL/uL (4.5-6.0); WHITE BLOOD COUNT (AUTO) 6.2 K/uL (4.3-11.0)
[2022-11-25 04:35] LABS: CALCIUM, SERUM 9.6 mg/dL (8.5-10.1); CREATININE 0.7 mg/dL (0.6-1.3); POTASSIUM 3.2 mmol/L (3.5-5.1)
--- NOTE | 2022-11-25 04:40 | NUR ---
RN NOTE RECEIVED CRITICAL FROM LAB; CO2 45, NOTED TO BE TRENDING DOWN FROM 52.
--- NOTE | 2022-11-25 07:31 | NUR ---
ROUNDER HAND OPENING NOTE RECEIVED PT RECEIVED IN BED, ASLEEP. EASILY AROUSABLE. ALERT AND ORIENTED X4. PT ON BIPAP CURRENT O2SAT OF 96%; NO S/S OF RESP DISTRESS AT THIS TIME. PT ATTACHED TO BEDSIDE MONITOR, SR 73 AT THIS TIME. ALEX INTACT AND PATENT, DRAINING CLEAR AND YELLOW URINE. LIO MIDLINE INTACT AND PATENT, FLUSHES EASILY WITH NO RESISTANCE; ALL SAFETY MEASURES IN PLACE.BED LOCKED IN LOWEST POSITION, CALL LIGHT WITHIN REACH, SIDE RAILS UP X3.BED ALARM ON
--- NOTE | 2022-11-25 07:34 | NUR ---
HYDROCHLORIC AREA SUPERVISOR CLOSING NOTE PT REMAINS IN BED, ASLEEP BUT EASILY AROUSABLE; A/O X4. CONTINUES TO BE ON BIPAP, TOLERATING WELL WITH O2SAT RANGING FROM 94%-99%; NO S/S OF RESP DISTRESS, NO SOB, NON-LABORED AND EQUAL BREATHING. ATTACHED TO BEDSIDE MONITOR; SR. ALEX INTACT AND PATENT, DRAINING CLEAR AND CHATA-COLORED URINE. LIO MIDLINE INTACT AND PATENT, FLUSHES EASILY WITH NO RESISTANCE; NO FLUIDS/MEDS INFUSING THROUGH. ALL DUE MEDS ADMINISTERED DURING THE NIGHT. BED IN LOWEST POSITION, CALL LIGHT WITHIN REACH, SIDE RAILS UP X3. WILL ENDORSE TO DAYSHIFT NURSE TO CONTINUE CARE.
[2022-11-25] MEDS: FUROSEMIDE 40 MG/4 ML VIAL IV SCH (08:38)
[2022-11-25] MEDS: CARVEDILOL 12.5 MG TABLET PO SCH (08:38)
[2022-11-25] MEDS: hydrALAZINE HCL 50 MG TABLET PO SCH (08:38)
[2022-11-25] MEDS: HEPARIN SODIUM, PORCINE 5000 UNITS/1 ML VIAL SQ SCH (08:39)
[2022-11-25] MEDS ORDERED: AMLODIPINE BESYLATE 5 MG TABLET PO SCH (09:00)
[2022-11-25] MEDS ORDERED: POTASSIUM CHLORIDE 20 MEQ TAB.PRT.SR PO SCH (11:00)
[2022-11-25] MEDS: POTASSIUM CHLORIDE 20 MEQ POWDER PACKET PO SCH ×2 (12:02→12:56)
--- NOTE | 2022-11-25 12:39 | NUR ---
RN NOTE SPOKE WITH VIET PATIENT SISTER VIA TELEPHONE. OKAY WITH PT TO PROVIDE HER WITH UPDATES. CALLED [employer] [phone] QUINTANILLA AND LEFT NUMBER TO CALL VIET [phone] FOR UPDATES REGARDING PT CONDITION AND DISCHARGE.STOCK TRACER LEFT A MESSAGE FOR DR. QUINTANILLA
--- NOTE | 2022-11-25 16:30 | NUR ---
RN NOTE UNABLE TO TAKE VITAL SIGNS DATA SCOPE DUE TO PT BEING OFF MONITOR, PENDING DISCHARGE
--- NOTE | 2022-11-25 16:36 | NUR ---
RN NOTE NOTIFIED DR. LARSON THAT PT SISTER IS AGAINST DISCHARGE AND WANTS TO SPEAK WITH [facility]. PROVIDED NUMBER VIET [phone] DR. LARSON SAID IT IS PT DECISION, AND IF PT WANTS TO STAY IT IS OKAY, IF PT WANTS TO GO HE CAN GO. PT IS ALERT AND ORIENTED X4, AMBULATORY, INDEPENDENT AND ABLE TO MAKE DECISIONS FOR HIMSELF.
--- NOTE | 2022-11-25 17:02 | NUR ---
WELL DRILL OPERATOR ROTARY DRILL NOTE PT LEFT IN STABLE CONDITION. PT ALERT AND ORIENTED X4. WENT OVER DISCHARGE INSTRUCTIONS, HEALTH TEACHINGS, AND CONTINUING HIS OWN MEDICATIONS. PT VERBALIZED UNDERSTANDING AND AGREED. PT IS ADAMANT ABOUT BEING DISCHARGED. PROVIDED EDUCATION, PT STILL ADAMANT ABOUT BEING DISCHARGED. PT PICKED UP BY MOM BY PRIVATE CAR. ESCORTED OUT BY WHEELCHAIR AND OXYGEN TANK BY NURSING STAFF. PT ON 6 L NASAL CANNULA. PT BORROWED OXYGEN TANK, DID NOT HAVE ONE AVAILABLE AT THIS TIME. PROVIDED EDUCATION ON OXYGEN SAFETY, KEEPING IT UPRIGHT AT ALL TIMES,KEEPING IT AWAY FROM HEAT SOURCES, DO NOT SMOKING 10 FEET FROM. PT VERBALIZED UNDERSTANDING AND AGREED TO RETURN IT TOMORROW MORNING 11/26/22. NOTIFIED MEAT COUNTER CLERK, TONGUE STITCHER AND TUYET NURSING SULFATE DRIER MACHINE OPERATOR. OKAY WITH NURSING SULFATE DRIER MACHINE OPERATOR FOR PT TO BORROW OXYGEN TANK AND RETURN TOMORROW MORNING 11/26/22. PT SAID WOULD DROP OFF OXYGEN TANK WITH SECURITY 11/26/22. PT AGREED AND VERBALIZED UNDERSTANDING TO RETURN IT TOMORROW MORNING. PT PHONE NUMBER [phone]. [address] DR[address] WATSON (SALES REPRESENTATIVE WIRE ROPE) PT STABLE FOR DISCHARGE. PT IS SEEN BY DR. KINCAID AT [facility] AND OXYGEN SATURATION IS BASELINE FOR PT. Addendum: 11/25/22 at 1716 by ISIS MONTILLA RN REMOVED MIDLINE,ALEX CATHETER AND HEART MONITOR. ALL BELONGINGS WITH PT INCLUDING HOME MEDICATION BOTTLES Addendum: 11/25/22 at 182 by ISIS MONTILLA RN PT AMBULATORY AND INDEPENDENT, VERBALLY RESPONSIVE AND ABLE TO MAKE NEEDS KNOWN. Addendum: 11/25/22 at 191 by ISIS MONTILLA RN EDUCATED PT ON HOW TO TURN OFF OXYGEN TANK. PT VERBALIZED UNDERSTANDING.
== END 2022-11-25 16:50 | disposition home or self-care (01) | DRG 194 ==
LOC: ER 04:23 → TRANSITION 06:42 → ICU 09:51
PROVIDERS: ADMIT Nurse Practitioner Acute Care; ATTEND Nurse Practitioner Acute Care
PROC: 5A09357 Assistance with Respiratory Ventilation, Less than 24 Consecutive Hours, Continuous Positive Airway Pressure (ICD-10-PCS; principal; 2022-11-23)
PROC: 5A09457 Assistance with Respiratory Ventilation, 24-96 Consecutive Hours, Continuous Positive Airway Pressure (ICD-10-PCS; 2022-11-23)
PROC: 05HC33Z Insertion of Infusion Device into Left Basilic Vein, Percutaneous Approach (ICD-10-PCS; 2022-11-24)
DX: I11.0 Hypertensive heart disease with heart failure (principal); J96.21 Acute and chronic respiratory failure with hypoxia; I21.4 Non-ST elevation (NSTEMI) myocardial infarction; G93.41 Metabolic encephalopathy; E66.2 Morbid (severe) obesity with alveolar hypoventilation; J44.1 Chronic obstructive pulmonary disease with (acute) exacerbation; I50.33 Acute on chronic diastolic (congestive) heart failure; Z20.822 Contact with and (suspected) exposure to COVID-19; J96.22 Acute and chronic respiratory failure with hypercapnia; F17.200 Nicotine dependence, unspecified, uncomplicated; E87.29 Other acidosis
CPT/HCPCS: 36415; 36600; 71045-TC; 80048-TC; 80053-TC; 80076-TC; 82803-TC; 83605-TC; 83735-TC; 83880; 84100-TC; 84484-TC; 85025-TC; 85730-TC; 87040-TC; 93307-TC; 94799-TC; G0378; J1644; J1940; J2270; J2405; J2930; J3490

== ENCOUNTER 2023-04-15 22:28 | Inpatient (IN) | payer OTHER ==
[~2023-04-15] VITALS: Ht 177.8 cm; Wt 202.3 kg
[~2023-04-15 22:28] MED LIST changes: +AMLO-212 PO; +BUME1TAB8 PO; +CARV25TA2 PO; +HYDR-4077 PO; -METO25TA20 PO; +SACU1TAB7 PO
[2023-04-15 23:36] LABS: BASOPHILS % (AUTO) 0.5 % (0.0-2.0); EOSINOPHILS # (AUTO) 0.1 K/uL (0.0-0.7); EOSINOPHILS % (AUTO) 1.7 % (0.0-6.0); HEMATOCRIT 42 % (39-51); HEMOGLOBIN 13.8 g/dL (13.5-17.5); LYMPHOCYTES # (AUTO) 1.2 K/uL (0.8-4.8); LYMPHOCYTES % (AUTO) 15.6 % (20.0-44.0); MEAN CORPUSCULAR HEMOGLOBIN 31 PG (26.0-33.0); MEAN CORPUSCULAR HGB CONC 33 g/dl (31.0-36.0); MEAN CORPUSCULAR VOLUME 95 fL (80-96); MONOCYTES # (AUTO) 0.6 K/uL (0.1-1.30); MONOCYTES % (AUTO) 8.2 % (2.0-12.0); NEUTROPHILS # (AUTO) 5.6 K/uL (1.8-8.9); PLATELET COUNT (AUTO) 168 K/uL (150-450); RED CELL DISTRIBUTION WIDTH 14.6 % (11.5-15.0); WHITE BLOOD COUNT (AUTO) 7.6 K/uL (4.3-11.0)
[2023-04-15 23:57] LABS: CHLORIDE 96 mmol/L (98-107); CREATININE 0.8 mg/dL (0.6-1.3); GLUCOSE 122 mg/dL (74-106); POTASSIUM 4.1 mmol/L (3.5-5.1); SODIUM SERUM 140 mmol/L (136-145); UREA NITROGEN, BLOOD 13 mg/dL (7-18)
[2023-04-15 23:59] LABS: CARBON DIOXIDE 45 mmol/L (21-32)
[2023-04-16] VITALS (13 sets, daily range): BP systolic 119–148; BP diastolic 75–102; TEMP 98–99.7; O2SAT 91–100
[2023-04-16] MEDS ORDERED: FUROSEMIDE 40 MG/4 ML VIAL IV ONE (01:00)
[2023-04-16] MEDS ORDERED: ASPIRIN 81 MG TAB.CHEW PO ONE (01:00)
[2023-04-16] MEDS ORDERED: ASPIRIN 81 MG TAB.CHEW ONE (01:01)
[2023-04-16] MEDS ORDERED: FUROSEMIDE 40 MG/4 ML VIAL ONE (01:01)
[2023-04-16] MEDS ORDERED: BUMETANIDE INJ 8 MG in IV NS 0.9% 48 ML IV ONE (03:30)
[2023-04-16] MEDS ORDERED: Z GUARD REMEDY 4 OZ OINT TP PRN (03:30)
[2023-04-16] MEDS ORDERED: ONDANSETRON HCL/PF 4 MG/2 ML VIAL IVP PRN (03:30)
[2023-04-16] MEDS ORDERED: BUMETANIDE INJ 0.25 MG/ML VIAL ONE ×3 (04:45→05:02)
[2023-04-16] MEDS: PANTOPRAZOLE 40 MG TABLET.DR PO SCH (07:54)
[2023-04-16] MEDS ORDERED: SACU1TAB4 PO (07:58)
[2023-04-16] MEDS ORDERED: acetaZOLAMIDE SODIUM 500 MG/VIAL VIAL IV SCH (09:00)
[2023-04-16] MEDS ORDERED: BUMETANIDE (1 MG) 1 MG TABLET PO SCH (09:00)
[2023-04-16] MEDS: ENOXAPARIN SODIUM 40 MG/0.4 ML DISP.SYRIN SQ SCH (10:07)
[2023-04-16] MEDS: CARVEDILOL 12.5 MG TABLET PO SCH ×2 (10:09→21:48)
[2023-04-16] MEDS: AMLODIPINE BESYLATE 5 MG TABLET PO SCH (10:10)
[2023-04-16] MEDS: hydrALAZINE HCL 50 MG TABLET PO SCH ×2 (10:10→17:56)
[2023-04-16] MEDS: ASPIRIN EC 81 MG TABLET.DR PO SCH (10:10)
[2023-04-16] MEDS: SACUBITRIL/VALSARTAN 1 EACH TABLET PO SCH ×2 (10:11→21:52)
[2023-04-16] MEDS: IPRATROPIUM NEB FS 0.5 MG/2.5 ML AMPUL.NEB NEB SCH ×3 (10:55→20:46)
[2023-04-16] MEDS: BUMETANIDE (1 MG) 1 MG TABLET JT SCH (17:56)
[2023-04-16] MEDS: ACETAMINOPHEN 325 MG TABLET PO PRN (17:59)
[2023-04-17] VITALS (14 sets, daily range): BP systolic 97–138; BP diastolic 59–97; TEMP 97.2–98.6; O2SAT 86–99
[2023-04-17] MEDS: ACETAMINOPHEN 325 MG TABLET PO PRN (00:38)
[2023-04-17] MEDS: IPRATROPIUM NEB FS 0.5 MG/2.5 ML AMPUL.NEB NEB SCH ×4 (00:45→19:56)
[2023-04-17 06:34] LABS: BASOPHILS % (AUTO) 0.4 % (0.0-2.0); EOSINOPHILS # (AUTO) 0.1 K/uL (0.0-0.7); EOSINOPHILS % (AUTO) 2.2 % (0.0-6.0); HEMATOCRIT 43 % (39-51); HEMOGLOBIN 14.4 g/dL (13.5-17.5); LYMPHOCYTES # (AUTO) 1.3 K/uL (0.8-4.8); LYMPHOCYTES % (AUTO) 21.2 % (20.0-44.0); MEAN CORPUSCULAR HEMOGLOBIN 32 PG (26.0-33.0); MEAN CORPUSCULAR HGB CONC 34 g/dl (31.0-36.0); MEAN CORPUSCULAR VOLUME 94 fL (80-96); MONOCYTES # (AUTO) 0.7 K/uL (0.1-1.30); MONOCYTES % (AUTO) 10.7 % (2.0-12.0); NEUTROPHILS # (AUTO) 4.1 K/uL (1.8-8.9); NEUTROPHILS % (AUTO) 65.5 % (43.0-81.0); PLATELET COUNT (AUTO) 149 K/uL (150-450); RED BLOOD CELL COUNT(AUTO) 4.55 MIL/uL (4.5-6.0); RED CELL DISTRIBUTION WIDTH 14.5 % (11.5-15.0); WHITE BLOOD COUNT (AUTO) 6.3 K/uL (4.3-11.0)
[2023-04-17 06:43] LABS: ABG BASE EXCESS 17.7 mmol/L; ABG OXYGEN SATURATION 89.3 % (92.0-98.5); ABG PCO2 85.2 mmHg (35.0-45.0); ABG PH 7.371 (7.350-7.450); ABG PO2 57.6 mmHg (75.0-100.0); ABG TOTAL HEMOGLOBIN 15.4 G/dL (13.5-18.0); AaDO2 100.3 mmHg; COHb 1.7 % (0.5-1.5); MetHb 0.2 % (0.0-1.5); O2Hb 87.6 % (94.0-97.0); SITE, ABG Right Radial; VENT MODE, BG 4 LPM NC
[2023-04-17 06:47] LABS: CALCIUM, SERUM 9.4 mg/dL (8.5-10.1); CREATININE 0.8 mg/dL (0.6-1.3); MAGNESIUM 2.3 mg/dL (1.8-2.4); PHOSPHORUS 4.6 mg/dL (2.5-4.9); POTASSIUM 3.7 mmol/L (3.5-5.1)
[2023-04-17] MEDS: PANTOPRAZOLE 40 MG TABLET.DR PO SCH (08:24)
[2023-04-17] MEDS: AMLODIPINE BESYLATE 5 MG TABLET PO SCH (08:24)
[2023-04-17] MEDS: hydrALAZINE HCL 50 MG TABLET PO SCH ×2 (08:24→17:00)
[2023-04-17] MEDS: ASPIRIN EC 81 MG TABLET.DR PO SCH (08:25)
[2023-04-17] MEDS: CARVEDILOL 12.5 MG TABLET PO SCH ×2 (08:25→21:19)
[2023-04-17] MEDS: BUMETANIDE (1 MG) 1 MG TABLET JT SCH ×2 (08:25→17:06)
[2023-04-17] MEDS: ENOXAPARIN SODIUM 40 MG/0.4 ML DISP.SYRIN SQ SCH (08:26)
[2023-04-17] MEDS: SACUBITRIL/VALSARTAN 1 EACH TABLET PO SCH ×2 (08:26→21:22)
[2023-04-18] VITALS: BP 123/64; TEMP 97.5; O2SAT 94
[2023-04-18] MEDS: IPRATROPIUM NEB FS 0.5 MG/2.5 ML AMPUL.NEB NEB SCH ×2 (01:10→07:35)
[2023-04-18 07:09] LABS: BASOPHILS % (AUTO) 0.3 % (0.0-2.0); EOSINOPHILS # (AUTO) 0.1 K/uL (0.0-0.7); EOSINOPHILS % (AUTO) 1.7 % (0.0-6.0); HEMATOCRIT 41 % (39-51); HEMOGLOBIN 13.9 g/dL (13.5-17.5); LYMPHOCYTES # (AUTO) 1.3 K/uL (0.8-4.8); LYMPHOCYTES % (AUTO) 19.2 % (20.0-44.0); MEAN CORPUSCULAR HEMOGLOBIN 32 PG (26.0-33.0); MEAN CORPUSCULAR HGB CONC 34 g/dl (31.0-36.0); MEAN CORPUSCULAR VOLUME 94 fL (80-96); MONOCYTES # (AUTO) 0.7 K/uL (0.1-1.30); MONOCYTES % (AUTO) 11.1 % (2.0-12.0); NEUTROPHILS # (AUTO) 4.5 K/uL (1.8-8.9); NEUTROPHILS % (AUTO) 67.7 % (43.0-81.0); PLATELET COUNT (AUTO) 144 K/uL (150-450); RED CELL DISTRIBUTION WIDTH 14.3 % (11.5-15.0); WHITE BLOOD COUNT (AUTO) 6.6 K/uL (4.3-11.0)
[2023-04-18 07:32] LABS: CALCIUM, SERUM 9.4 mg/dL (8.5-10.1); POTASSIUM 3.7 mmol/L (3.5-5.1)
[2023-04-18 07:43] VITALS: O2SAT 98
[2023-04-18 08:00] VITALS: BP 109/66; TEMP 97.7; O2SAT 100
[2023-04-18] MEDS: AMLODIPINE BESYLATE 5 MG TABLET PO SCH (08:15)
[2023-04-18] MEDS: ASPIRIN EC 81 MG TABLET.DR PO SCH (08:15)
[2023-04-18] MEDS: BUMETANIDE (1 MG) 1 MG TABLET JT SCH (08:15)
[2023-04-18] MEDS: PANTOPRAZOLE 40 MG TABLET.DR PO SCH (08:15)
[2023-04-18] MEDS: hydrALAZINE HCL 50 MG TABLET PO SCH (08:17)
[2023-04-18] MEDS: CARVEDILOL 12.5 MG TABLET PO SCH (08:17)
[2023-04-18] MEDS: SACUBITRIL/VALSARTAN 1 EACH TABLET PO SCH (08:29)
[2023-04-18] MEDS: ENOXAPARIN SODIUM 40 MG/0.4 ML DISP.SYRIN SQ SCH (08:33)
[2023-04-18 12:06] VITALS: BP 124/68; TEMP 97.7; O2SAT 96
[2023-04-18] MEDS ORDERED: Aspirin Ec PO (12:49)
[2023-04-18] MEDS ORDERED: SACU1TAB PO (12:49)
== END 2023-04-18 13:25 | disposition home or self-care (01) | DRG 194 ==
LOC: ER 22:30 → TELE1 04-16 02:44
PROVIDERS: ADMIT Nurse Practitioner Acute Care; ATTEND Nurse Practitioner Acute Care
DX: I11.0 Hypertensive heart disease with heart failure (principal); J96.21 Acute and chronic respiratory failure with hypoxia; I21.A1 Myocardial infarction type 2; E44.0 Moderate protein-calorie malnutrition; Z79.899 Other long term (current) drug therapy; I50.33 Acute on chronic diastolic (congestive) heart failure; J96.22 Acute and chronic respiratory failure with hypercapnia; J44.9 Chronic obstructive pulmonary disease, unspecified; Z68.44 Body mass index [BMI] 60.0-69.9, adult; E66.2 Morbid (severe) obesity with alveolar hypoventilation; Z87.891 Personal history of nicotine dependence; Z99.81 Dependence on supplemental oxygen; J90 Pleural effusion, not elsewhere classified; Z71.3 Dietary counseling and surveillance
CPT/HCPCS: 36415; 36600; 71045-TC; 80048-TC; 83735-TC; 83880; 84100-TC; 84484-TC; 85025-TC; 93307-TC; 94799-TC; A4223; G0378; J1120; J1650; J1940; J3490; J7050

== ENCOUNTER 2023-05-27 13:03 | Inpatient (IN) | payer OTHER ==
[~2023-05-27] VITALS: Ht 165.1 cm; Wt 202.8 kg
[2023-05-27] VITALS (15 sets, daily range): BP systolic 83–164; BP diastolic 46–84; TEMP 96–96.4; O2SAT 90–100
[~2023-05-27 13:03] MED LIST changes: +Aspirin Ec PO; +SACU1TAB PO; +SACU1TAB4 PO; -SACU1TAB7 PO
[2023-05-27] MEDS ORDERED: FUROSEMIDE 40 MG/4 ML VIAL IV ONE (13:30)
[2023-05-27] MEDS ORDERED: NITROGLYCERIN PACKET 1 GM PACKET TD ONE (13:30)
[2023-05-27] MEDS ORDERED: NITROGLYCERIN PACKET 1 GM PACKET ONE (13:34)
[2023-05-27] MEDS ORDERED: FUROSEMIDE 40 MG/4 ML VIAL ONE (13:49)
[2023-05-27 14:20] LABS: BASOPHILS # (AUTO) 0.2 K/uL (0.0-0.2); BASOPHILS % (AUTO) 1.9 % (0.0-2.0); EOSINOPHILS % (AUTO) 0.2 % (0.0-6.0); HEMATOCRIT 44 % (39-51); HEMOGLOBIN 14.3 g/dL (13.5-17.5); LYMPHOCYTES # (AUTO) 0.6 K/uL (0.8-4.8); LYMPHOCYTES % (AUTO) 7.5 % (20.0-44.0); MEAN CORPUSCULAR HEMOGLOBIN 32 PG (26.0-33.0); MEAN CORPUSCULAR HGB CONC 33 g/dl (31.0-36.0); MEAN CORPUSCULAR VOLUME 97 fL (80-96); MONOCYTES # (AUTO) 0.7 K/uL (0.1-1.30); MONOCYTES % (AUTO) 8.7 % (2.0-12.0); NEUTROPHILS # (AUTO) 6.9 K/uL (1.8-8.9); NEUTROPHILS % (AUTO) 81.7 % (43.0-81.0); PLATELET COUNT (AUTO) 137 K/uL (150-450); RED BLOOD CELL COUNT(AUTO) 4.56 MIL/uL (4.5-6.0); RED CELL DISTRIBUTION WIDTH 15.9 % (11.5-15.0); WHITE BLOOD COUNT (AUTO) 8.4 K/uL (4.3-11.0)
[2023-05-27 14:36] LABS: INR 1.12 (0.91-1.10); PARTIAL THROMBOPLASTIN TIME 27.1 SEC (24.3-34.3); PROTHROMBIN TIME 11.8 SECS (9.2-11.1)
[2023-05-27 14:47] LABS: CALCIUM, SERUM 9.2 mg/dL (8.5-10.1); CHLORIDE 97 mmol/L (98-107); GLUCOSE 144 mg/dL (74-106); SODIUM SERUM 139 mmol/L (136-145); UREA NITROGEN, BLOOD 20 mg/dL (7-18)
[2023-05-27 14:55] LABS: LACTIC ACID 0.6 mmol/L (0.4-2.0)
[2023-05-27 15:01] LABS: ALANINE AMINOTRANSFERASE 13 U/L (12-78); ALBUMIN 3.5 g/dL (3.4-5.0); ALKALINE PHOSPHATASE 74 U/L (46-116); ASPARTATE AMINOTRANSFERASE 8 U/L (15-37); BILIRUBIN,DIRECT 0.2 mg/dL (0.0-0.2); BILIRUBIN,TOTAL 0.8 mg/dL (0.2-1.0); CARBON DIOXIDE 43 mmol/L (21-32); NT-PRO BNP 1992 pg/mL (0-125); TOTAL PROTEIN, SERUM 8.2 g/dL (6.4-8.2)
[2023-05-27] MEDS ORDERED: FLUT1DIS3 IH (15:44)
[2023-05-27] MEDS ORDERED: ENOXAPARIN SODIUM 40 MG/0.4 ML DISP.SYRIN SQ SCH (16:30)
[2023-05-27] MEDS ORDERED: ONDANSETRON HCL/PF 4 MG/2 ML VIAL IVP PRN (18:30)
[2023-05-27] MEDS: ENOXAPARIN SODIUM 40 MG/0.4 ML DISP.SYRIN SQ SCH (18:34)
[2023-05-27] MEDS: FUROSEMIDE 40 MG/4 ML VIAL IV SCH ×2 (18:37→21:21)
[2023-05-27] MEDS: methylPREDNISolone SOD SUCC 125 MG/2ML VIAL IV SCH (18:37)
[2023-05-27 18:46] LABS: ABG BASE EXCESS 5.2 mmol/L; ABG OXYGEN SATURATION 94.6 % (92.0-98.5); ABG PCO2 124.4 mmHg (35.0-45.0); ABG PH 7.123 (7.350-7.450); ABG PO2 85.1 mmHg (75.0-100.0); ABG TOTAL HEMOGLOBIN 15.6 G/dL (13.5-18.0); COHb 2.7 % (0.5-1.5); MetHb 0.4 % (0.0-1.5); O2Hb 91.7 % (94.0-97.0); SITE, ABG Left Radial
[2023-05-27 18:46] LABS: ABG BASE EXCESS 4.8 mmol/L; ABG OXYGEN SATURATION 98.8 % (92.0-98.5); ABG PCO2 113.3 mmHg (35.0-45.0); ABG PH 7.148 (7.350-7.450); ABG PO2 172.1 mmHg (75.0-100.0); ABG TOTAL HEMOGLOBIN 15.4 G/dL (13.5-18.0); COHb 2.8 % (0.5-1.5); MetHb 0.4 % (0.0-1.5); O2Hb 95.6 % (94.0-97.0); VENT MODE, BG 100% NRB
[2023-05-27] MEDS: IPRATROPIUM NEB FS 0.5 MG/2.5 ML AMPUL.NEB NEB SCH ×2 (19:50→23:56)
[2023-05-27] MEDS ORDERED: IV NS 0.9% 250 ML IV PRN (22:00)
[2023-05-27] MEDS: PROPOFOL 100 ML IV PRN (22:32)
[2023-05-28] VITALS (40 sets, daily range): BP systolic 96–159; BP diastolic 59–93; TEMP 98.6–102; O2SAT 92–100
[2023-05-28 01:11] LABS: ABG BASE EXCESS 8.5 mmol/L; ABG OXYGEN SATURATION 94.1 % (92.0-98.5); ABG PCO2 90.3 mmHg (35.0-45.0); ABG PH 7.262 (7.350-7.450); ABG PO2 70.8 mmHg (75.0-100.0); ABG TOTAL HEMOGLOBIN 15.5 G/dL (13.5-18.0); AaDO2 551.9 mmHg; COHb 2.6 % (0.5-1.5); MetHb 0.3 % (0.0-1.5); O2Hb 91.4 % (94.0-97.0); PEEP,BG 5 cm H2O; SITE, ABG Right Radial; VENT MODE, BG AC24 550 100% PEEP+5; VT, ABG 550 mL
[2023-05-28 01:11] LABS: ABG BASE EXCESS 14.3 mmol/L; ABG OXYGEN SATURATION 89.2 % (92.0-98.5); ABG PCO2 177.4 mmHg (35.0-45.0); ABG PH 7.092 (7.350-7.450); ABG PO2 63.3 mmHg (75.0-100.0); ABG TOTAL HEMOGLOBIN 16.2 G/dL (13.5-18.0); AaDO2 245.1 mmHg; COHb 2.9 % (0.5-1.5); MetHb 0.3 % (0.0-1.5); O2Hb 86.3 % (94.0-97.0); SITE, ABG Right Radial
[2023-05-28] MEDS: PROPOFOL 100 ML IV PRN ×10 (01:15→23:42)
[2023-05-28] MEDS: IPRATROPIUM NEB FS 0.5 MG/2.5 ML AMPUL.NEB NEB SCH ×6 (04:16→23:58)
[2023-05-28 05:28] LABS: CALCIUM, SERUM 9.6 mg/dL (8.5-10.1); CREATININE 1.8 mg/dL (0.6-1.3); MAGNESIUM 2.3 mg/dL (1.8-2.4); PHOSPHORUS 1.9 mg/dL (2.5-4.9)
[2023-05-28 05:36] LABS: HEMATOCRIT 42 % (39-51); HEMOGLOBIN 13.5 g/dL (13.5-17.5); LYMPHOCYTES # (AUTO) 0.7 K/uL (0.8-4.8); LYMPHOCYTES % (AUTO) 8.5 % (20.0-44.0); MEAN CORPUSCULAR HEMOGLOBIN 31 PG (26.0-33.0); MEAN CORPUSCULAR HGB CONC 32 g/dl (31.0-36.0); MEAN CORPUSCULAR VOLUME 97 fL (80-96); MONOCYTES # (AUTO) 0.6 K/uL (0.1-1.30); NEUTROPHILS # (AUTO) 6.8 K/uL (1.8-8.9); NEUTROPHILS % (AUTO) 84.5 % (43.0-81.0); PLATELET COUNT (AUTO) 134 K/uL (150-450); RED BLOOD CELL COUNT(AUTO) 4.35 MIL/uL (4.5-6.0); RED CELL DISTRIBUTION WIDTH 15.7 % (11.5-15.0)
[2023-05-28] MEDS ORDERED: NOREPINEPHRINE 8MG/250ML RTU 0 ML IV ONE (06:25)
[2023-05-28 07:57] LABS: ABG BASE EXCESS 10.7 mmol/L; ABG OXYGEN SATURATION 94.1 % (92.0-98.5); ABG PCO2 64.1 mmHg (35.0-45.0); ABG PH 7.395 (7.350-7.450); ABG PO2 67.1 mmHg (75.0-100.0); ABG TOTAL HEMOGLOBIN 14.5 G/dL (13.5-18.0); AaDO2 581.8 mmHg; COHb 1.7 % (0.5-1.5); MetHb 0.4 % (0.0-1.5); O2Hb 92.1 % (94.0-97.0); SITE, ABG Right Radial
[2023-05-28] MEDS ORDERED: SUCCINYLCHOLINE CHLORIDE 20 MG/ML VIAL IV ONE (08:49)
[2023-05-28] MEDS ORDERED: ETOMIDATE 2 MG/ML VIAL IV ONE (08:49)
[2023-05-28] MEDS: ASPIRIN EC 81 MG TABLET.DR PO SCH (09:00)
[2023-05-28] MEDS ORDERED: hydrALAZINE HCL 50 MG TABLET PO SCH (09:00)
[2023-05-28] MEDS ORDERED: PANTOPRAZOLE 40 MG VIAL IV SCH (09:00)
[2023-05-28] MEDS ORDERED: CARVEDILOL 6.25 MG TABLET PO ONE (09:00)
[2023-05-28] MEDS: FUROSEMIDE 40 MG/4 ML VIAL IV SCH ×2 (09:44→21:16)
[2023-05-28] MEDS: methylPREDNISolone SOD SUCC 125 MG/2ML VIAL IV SCH ×2 (09:44→17:11)
[2023-05-28] MEDS ORDERED: LEVOFLOXACIN 750 MG /D5W 150ML 150 ML IV SCH (11:00)
[2023-05-28] MEDS ORDERED: IPRATROPIUM NEB FS 0.5 MG/2.5 ML AMPUL.NEB NEB SCH (11:30)
[2023-05-28] MEDS: ALBUTEROL HALF STRENGTH 1.25 MG/3 ML VIAL.NEB NEB SCH ×4 (12:04→23:58)
[2023-05-28] MEDS: hydrALAZINE HCL 50 MG TABLET PO SCH ×2 (13:00→21:16)
[2023-05-28] MEDS: Sodium Phosphate 15 MMOL in IV NS 0.9% 245 ML IV SCH ×2 (16:00→17:17)
[2023-05-28 18:46] LABS: APPEARANCE,URINE CLEAR (CLEAR); BILIRUBIN,URINE NEGATIVE (NEGATIVE); BLOOD, URINE NEGATIVE Ery/uL (NEGATIVE); COLOR,URINE YELLOW (YELLOW); KETONES,URINE NEGATIVE (NEGATIVE); LEUKOCYTE ESTERASE ,URINE NEGATIVE (NEGATIVE); NITRITE, URINE NEGATIVE (NEGATIVE); PH,URINE 5.5 (5.0-8.0); PROTEIN,URINE NEGATIVE (NEGATIVE); UGLUCOSE NEGATIVE (NEGATIVE); UROBILINOGEN,URINE 0.2 EU/dL (0.2)
[2023-05-28 19:19] LABS: CREATININE, URINE 46.5 MG/DL (30.0-125.0); URINE TOTAL PROTEIN 17.1 mg/dL (0-11.9)
[2023-05-28 19:58] LABS: EOSINOPHIL,URINE None Seen
[2023-05-28] MEDS: ENOXAPARIN SODIUM 40 MG/0.4 ML DISP.SYRIN SQ SCH (21:16)
[2023-05-29] VITALS (27 sets, daily range): BP systolic 120–165; BP diastolic 77–101; TEMP 98.2–99.8; O2SAT 90–99
[2023-05-29] MEDS: PROPOFOL 100 ML IV PRN ×11 (01:38→23:17)
[2023-05-29] MEDS: IPRATROPIUM NEB FS 0.5 MG/2.5 ML AMPUL.NEB NEB SCH ×6 (03:51→23:26)
[2023-05-29] MEDS: ALBUTEROL HALF STRENGTH 1.25 MG/3 ML VIAL.NEB NEB SCH ×6 (03:51→23:26)
[2023-05-29 05:00] LABS: BASOPHILS % (AUTO) 0.3 % (0.0-2.0); EOSINOPHILS % (AUTO) 0.2 % (0.0-6.0); HEMATOCRIT 40 % (39-51); HEMOGLOBIN 13.2 g/dL (13.5-17.5); LYMPHOCYTES # (AUTO) 1.1 K/uL (0.8-4.8); LYMPHOCYTES % (AUTO) 15.2 % (20.0-44.0); MEAN CORPUSCULAR HEMOGLOBIN 32 PG (26.0-33.0); MEAN CORPUSCULAR HGB CONC 33 g/dl (31.0-36.0); MEAN CORPUSCULAR VOLUME 96 fL (80-96); MONOCYTES # (AUTO) 0.9 K/uL (0.1-1.30); MONOCYTES % (AUTO) 11.6 % (2.0-12.0); NEUTROPHILS # (AUTO) 5.4 K/uL (1.8-8.9); NEUTROPHILS % (AUTO) 72.7 % (43.0-81.0); PLATELET COUNT (AUTO) 120 K/uL (150-450); RED BLOOD CELL COUNT(AUTO) 4.15 MIL/uL (4.5-6.0); WHITE BLOOD COUNT (AUTO) 7.5 K/uL (4.3-11.0)
[2023-05-29] MEDS: hydrALAZINE HCL 50 MG TABLET PO SCH ×3 (05:08→21:08)
[2023-05-29 05:45] LABS: BILIRUBIN,TOTAL 0.7 mg/dL (0.2-1.0); CALCIUM, SERUM 9.6 mg/dL (8.5-10.1); CREATININE 1.1 mg/dL (0.6-1.3); MAGNESIUM 2.3 mg/dL (1.8-2.4); PHOSPHORUS 3.4 mg/dL (2.5-4.9); POTASSIUM 3.7 mmol/L (3.5-5.1); TOTAL PROTEIN, SERUM 7.2 g/dL (6.4-8.2)
[2023-05-29 06:05] LABS: ABG BASE EXCESS 14.7 mmol/L; ABG PCO2 58.1 mmHg (35.0-45.0); ABG PH 7.469 (7.350-7.450); ABG PO2 60.2 mmHg (75.0-100.0); ABG TOTAL HEMOGLOBIN 14.2 G/dL (13.5-18.0); COHb 0.4 % (0.5-1.5); MetHb 0.3 % (0.0-1.5); O2Hb 90.4 % (94.0-97.0); PEEP,BG 5 cm H2O; SITE, ABG Left Radial; VT, ABG 550 mL
[2023-05-29] MEDS: CEFEPIME 2 GM in IV D5W 100 ML IV SCH ×3 (08:53→21:06)
[2023-05-29] MEDS: ASPIRIN EC 81 MG TABLET.DR PO SCH (08:54)
[2023-05-29] MEDS: methylPREDNISolone SOD SUCC 125 MG/2ML VIAL IV SCH ×2 (08:54→18:29)
[2023-05-29] MEDS: FUROSEMIDE 40 MG/4 ML VIAL IV SCH ×2 (08:54→21:06)
[2023-05-29] MEDS: PANTOPRAZOLE 40 MG/PACK PACK GT SCH (09:14)
[2023-05-29] MEDS: VANCOMYCIN 1.5 GM in IV D5W 500ml IV ONE ×2 (09:22→10:00)
[2023-05-29] MEDS ORDERED: VANCOMYCIN 500 MG in IV D5W 100ml IV ONE (10:00)
[2023-05-29] MEDS: VANCOMYCIN 1.25 GM in IV D5W 250 ML IV SCH (18:30)
[2023-05-29] MEDS: ENOXAPARIN SODIUM 40 MG/0.4 ML DISP.SYRIN SQ SCH (21:07)
[2023-05-30] VITALS (33 sets, daily range): BP systolic 94–153; BP diastolic 53–86; TEMP 98.4–99.2; O2SAT 88–96
[2023-05-30] MEDS: PROPOFOL 100 ML IV PRN ×13 (01:25→22:56)
[2023-05-30] MEDS: VANCOMYCIN 1.25 GM in IV D5W 250 ML IV SCH ×3 (01:27→21:11)
[2023-05-30] MEDS: ALBUTEROL HALF STRENGTH 1.25 MG/3 ML VIAL.NEB NEB SCH ×6 (03:43→23:25)
[2023-05-30] MEDS: IPRATROPIUM NEB FS 0.5 MG/2.5 ML AMPUL.NEB NEB SCH ×6 (03:43→23:25)
[2023-05-30 05:25] LABS: CALCIUM, SERUM 9.4 mg/dL (8.5-10.1); CREATININE 0.9 mg/dL (0.6-1.3); POTASSIUM 3.5 mmol/L (3.5-5.1)
[2023-05-30] MEDS: hydrALAZINE HCL 50 MG TABLET PO SCH (05:30)
[2023-05-30] MEDS: CEFEPIME 2 GM in IV D5W 100 ML IV SCH ×3 (05:30→23:46)
[2023-05-30 07:06] LABS: PTH, INTACT 32 pg/mL (15-65)
[2023-05-30] MEDS: PANTOPRAZOLE 40 MG/PACK PACK GT SCH (08:40)
[2023-05-30] MEDS: FUROSEMIDE 40 MG/4 ML VIAL IV SCH (08:40)
[2023-05-30] MEDS: methylPREDNISolone SOD SUCC 125 MG/2ML VIAL IV SCH ×2 (08:40→17:34)
[2023-05-30] MEDS: ASPIRIN EC 81 MG TABLET.DR PO SCH (08:40)
[2023-05-30] MEDS: VITAL AF 1.2 1,000 ML BOTTLE GT PRN (11:15)
[2023-05-30] MEDS: hydrALAZINE HCL 50 MG TABLET GT SCH ×2 (13:00→21:13)
[2023-05-30] MEDS: ENOXAPARIN SODIUM 40 MG/0.4 ML DISP.SYRIN SQ SCH (21:14)
[2023-05-31] VITALS (33 sets, daily range): BP systolic 92–119; BP diastolic 49–85; TEMP 98.3–99.2; O2SAT 89–96
[2023-05-31] MEDS: PROPOFOL 100 ML IV PRN ×19 (00:39→23:01)
[2023-05-31] MEDS: IPRATROPIUM NEB FS 0.5 MG/2.5 ML AMPUL.NEB NEB SCH ×6 (03:28→23:33)
[2023-05-31] MEDS: ALBUTEROL HALF STRENGTH 1.25 MG/3 ML VIAL.NEB NEB SCH ×6 (03:28→23:33)
[2023-05-31 04:45] LABS: CALCIUM, SERUM 9.5 mg/dL (8.5-10.1); POTASSIUM 3.8 mmol/L (3.5-5.1)
[2023-05-31] MEDS: hydrALAZINE HCL 50 MG TABLET GT SCH ×3 (04:52→21:27)
[2023-05-31] MEDS: CEFEPIME 2 GM in IV D5W 100 ML IV SCH ×3 (04:52→22:00)
[2023-05-31] MEDS: VANCOMYCIN 1.25 GM in IV D5W 250 ML IV SCH ×2 (08:10→20:00)
[2023-05-31] MEDS: PANTOPRAZOLE 40 MG/PACK PACK GT SCH (08:10)
[2023-05-31] MEDS: methylPREDNISolone SOD SUCC 125 MG/2ML VIAL IV SCH ×2 (08:10→16:21)
[2023-05-31] MEDS: ASPIRIN 81 MG TAB.CHEW NG SCH (08:55)
[2023-05-31 11:07] LABS: *SPE A/G RATIO 0.9 (0.7-1.7); *SPE ALPHA-1-GLOBULIN 0.3 g/dL (0.0-0.4); *SPE ALPHA-2-GLOBULIN 0.7 g/dL (0.4-1.0); *SPE GLOBULIN, TOTAL 3.5 g/dL (2.2-3.9); *SPE M-SPIKE Not Observed g/dL (Not Observed); *SPE PROTEIN TOTAL 6.5 g/dL (6.0-8.5); *SPEGAMMA GLOBULIN 1.5 g/dL (0.4-1.8)
[2023-05-31] MEDS: VITAL AF 1.2 1,000 ML BOTTLE GT PRN (14:46)
[2023-05-31] MEDS: ENOXAPARIN SODIUM 40 MG/0.4 ML DISP.SYRIN SQ SCH (21:28)
[2023-06-01] VITALS (35 sets, daily range): BP systolic 95–132; BP diastolic 53–75; TEMP 96.7–99; O2SAT 88–100
[2023-06-01] MEDS: PROPOFOL 100 ML IV PRN ×23 (00:16→23:50)
[2023-06-01] MEDS: IPRATROPIUM NEB FS 0.5 MG/2.5 ML AMPUL.NEB NEB SCH ×6 (03:30→23:12)
[2023-06-01] MEDS: ALBUTEROL HALF STRENGTH 1.25 MG/3 ML VIAL.NEB NEB SCH ×6 (03:30→23:12)
[2023-06-01] MEDS: hydrALAZINE HCL 50 MG TABLET GT SCH ×3 (04:36→21:47)
[2023-06-01] MEDS: CEFEPIME 2 GM in IV D5W 100 ML IV SCH ×3 (04:36→21:46)
[2023-06-01 04:56] LABS: TRIGLYCERIDES 230 mg/dL (30-150)
[2023-06-01 05:04] LABS: CALCIUM, SERUM 9.4 mg/dL (8.5-10.1); CREATININE 0.8 mg/dL (0.6-1.3); POTASSIUM 3.8 mmol/L (3.5-5.1)
[2023-06-01 05:09] LABS: VANCOMYCIN,TROUGH 21 ug/ml (10-20)
[2023-06-01] MEDS: ASPIRIN 81 MG TAB.CHEW NG SCH (09:12)
[2023-06-01] MEDS: methylPREDNISolone SOD SUCC 125 MG/2ML VIAL IV SCH ×2 (09:12→17:17)
[2023-06-01] MEDS: VANCOMYCIN 1.25 GM in IV D5W 250 ML IV SCH ×3 (09:12→20:56)
[2023-06-01] MEDS: PANTOPRAZOLE 40 MG/PACK PACK GT SCH (09:13)
[2023-06-01] MEDS: ENOXAPARIN SODIUM 40 MG/0.4 ML DISP.SYRIN SQ SCH (21:45)
[2023-06-01] MEDS: VITAL AF 1.2 1,000 ML BOTTLE GT PRN (23:50)
[2023-06-02] VITALS (38 sets, daily range): BP systolic 94–131; BP diastolic 43–72; TEMP 97.8–100.9; O2SAT 88–100
[2023-06-02] MEDS: PROPOFOL 100 ML IV PRN ×21 (01:07→23:29)
[2023-06-02] MEDS: ALBUTEROL HALF STRENGTH 1.25 MG/3 ML VIAL.NEB NEB SCH ×6 (03:23→23:24)
[2023-06-02] MEDS: IPRATROPIUM NEB FS 0.5 MG/2.5 ML AMPUL.NEB NEB SCH ×6 (03:23→23:24)
[2023-06-02] MEDS: CEFEPIME 2 GM in IV D5W 100 ML IV SCH ×3 (04:42→21:22)
[2023-06-02] MEDS: hydrALAZINE HCL 50 MG TABLET GT SCH ×3 (04:42→21:22)
[2023-06-02 05:57] LABS: CALCIUM, SERUM 9.4 mg/dL (8.5-10.1); CREATININE 0.8 mg/dL (0.6-1.3); POTASSIUM 3.9 mmol/L (3.5-5.1)
[2023-06-02] MEDS ORDERED: acetaZOLAMIDE SODIUM 500 MG/VIAL VIAL IV ONE (08:00)
[2023-06-02] MEDS: POTASSIUM CHLORIDE 20 MEQ POWDER PACKET GT SCH ×3 (08:14→09:42)
[2023-06-02] MEDS: methylPREDNISolone SOD SUCC 125 MG/2ML VIAL IV SCH ×2 (08:15→16:42)
[2023-06-02] MEDS: FUROSEMIDE 40 MG/4 ML VIAL IV SCH ×3 (08:15→14:43)
[2023-06-02] MEDS: PANTOPRAZOLE 40 MG/PACK PACK GT SCH (08:15)
[2023-06-02] MEDS: ASPIRIN 81 MG TAB.CHEW NG SCH (08:15)
[2023-06-02] MEDS: ACETAMINOPHEN 650 MG/20.3 ML UDC NG PRN (13:03)
[2023-06-02] MEDS: VANCOMYCIN 1.25 GM in IV D5W 250 ML IV SCH (20:00)
[2023-06-02] MEDS: ENOXAPARIN SODIUM 40 MG/0.4 ML DISP.SYRIN SQ SCH (21:23)
[2023-06-03] VITALS (96 sets, daily range): BP systolic 64–161; BP diastolic 24–77; TEMP 98.4–100.7; O2SAT 65–90
[2023-06-03] MEDS: PROPOFOL 100 ML IV PRN ×23 (00:17→23:58)
[2023-06-03] MEDS: ALBUTEROL HALF STRENGTH 1.25 MG/3 ML VIAL.NEB NEB SCH ×6 (02:40→23:01)
[2023-06-03] MEDS: IPRATROPIUM NEB FS 0.5 MG/2.5 ML AMPUL.NEB NEB SCH ×6 (02:40→23:01)
[2023-06-03] MEDS: hydrALAZINE HCL 50 MG TABLET GT SCH ×3 (05:00→21:00)
[2023-06-03] MEDS: CEFEPIME 2 GM in IV D5W 100 ML IV SCH ×3 (05:12→22:08)
[2023-06-03 06:10] LABS: CALCIUM, SERUM 9.6 mg/dL (8.5-10.1); CREATININE 1.3 mg/dL (0.6-1.3); POTASSIUM 3.9 mmol/L (3.5-5.1)
[2023-06-03] MEDS: NOREPINEPHRINE 8 MG in IV NS 0.9% 242 ML IV PRN ×5 (06:23→18:08)
[2023-06-03] MEDS: methylPREDNISolone SOD SUCC 125 MG/2ML VIAL IV SCH ×2 (08:17→16:28)
[2023-06-03] MEDS: PANTOPRAZOLE 40 MG/PACK PACK GT SCH (08:17)
[2023-06-03] MEDS: ASPIRIN 81 MG TAB.CHEW NG SCH (08:17)
[2023-06-03] MEDS: VANCOMYCIN 1.25 GM in IV D5W 250 ML IV SCH ×2 (08:17→21:58)
[2023-06-03] MEDS: ACETAMINOPHEN 650 MG/20.3 ML UDC NG PRN ×2 (08:17→23:40)
[2023-06-03 08:36] LABS: ABG BASE EXCESS 0.3 mmol/L; ABG OXYGEN SATURATION 85.9 % (92.0-98.5); ABG PH 7.222 (7.350-7.450); ABG PO2 59.8 mmHg (75.0-100.0); ABG TOTAL HEMOGLOBIN 17.4 G/dL (13.5-18.0); AaDO2 576.2 mmHg; COHb 0.9 % (0.5-1.5); MetHb 0.4 % (0.0-1.5); O2Hb 84.8 % (94.0-97.0); SITE, ABG Right Radial
[2023-06-03] MEDS ORDERED: POTASSIUM CHLORIDE 20 MEQ POWDER PACKET NG SCH (09:00)
[2023-06-03] MEDS ORDERED: BUMETANIDE INJ 8 MG in IV NS 0.9% 48 ML IV ONE (09:00)
[2023-06-03 13:24] LABS: ABG OXYGEN SATURATION 80.3 % (92.0-98.5); ABG PCO2 75.7 mmHg (35.0-45.0); ABG PH 7.186 (7.350-7.450); ABG PO2 51.3 mmHg (75.0-100.0); COHb 0.9 % (0.5-1.5); MetHb 0.5 % (0.0-1.5); O2Hb 79.2 % (94.0-97.0); SITE, ABG Right Radial
[2023-06-03] MEDS: NOREPINEPHRINE 32 MG in IV NS 0.9% 218 ML IV PRN ×2 (19:50→23:21)
[2023-06-03] MEDS ORDERED: PHENYLEPHRINE 10 MG/ML VIAL ONE (21:29)
[2023-06-03] MEDS: PHENYLEPHRINE 100 MG in IV NS 0.9% 240 ML IV PRN (21:37)
[2023-06-03] MEDS: ENOXAPARIN SODIUM 40 MG/0.4 ML DISP.SYRIN SQ SCH (22:05)
[2023-06-03 22:38] LABS: CALCIUM, SERUM 9.5 mg/dL (8.5-10.1); CREATININE 2.5 mg/dL (0.6-1.3); MAGNESIUM 2.8 mg/dL (1.8-2.4); POTASSIUM 5.1 mmol/L (3.5-5.1)
[2023-06-03 22:44] LABS: ABG BASE EXCESS -6.4 mmol/L; ABG OXYGEN SATURATION 71.4 % (92.0-98.5); ABG PCO2 98.2 mmHg (35.0-45.0); ABG PH 7.067 (7.350-7.450); ABG PO2 43.4 mmHg (75.0-100.0); ABG TOTAL HEMOGLOBIN 18.9 G/dL (13.5-18.0); AaDO2 571.4 mmHg; COHb 1.2 % (0.5-1.5); MetHb 0.2 % (0.0-1.5); O2Hb 70.4 % (94.0-97.0); SITE, ABG Left Radial
[2023-06-03] MEDS ORDERED: SODIUM BICARBONATE SYR 50 MEQ/50 ML DISP.SYRIN IV ONE (23:00)
[2023-06-04] VITALS (52 sets, daily range): BP systolic 68–89; BP diastolic 19–70; TEMP 99–102; O2SAT 70–72
[2023-06-04] MEDS: PROPOFOL 100 ML IV PRN ×2 (01:29→02:52)
[2023-06-04] MEDS ORDERED: PHENYLEPHRINE 10 MG/ML VIAL ONE (02:21)
[2023-06-04] MEDS ORDERED: NOREPINEPHRINE 4 MG/4 ML AMPUL IV ONE ×2 (02:23→02:25)
[2023-06-04] MEDS: NOREPINEPHRINE 32 MG in IV NS 0.9% 218 ML IV PRN (02:31)
[2023-06-04] MEDS: PHENYLEPHRINE 100 MG in IV NS 0.9% 240 ML IV PRN (02:32)
[2023-06-04] MEDS ORDERED: VASOPRESSIN INJ 40 UNIT in IV NS 0.9% 38 ML IV PRN ×4 (03:30)
[2023-06-04] MEDS: ALBUTEROL HALF STRENGTH 1.25 MG/3 ML VIAL.NEB NEB SCH (03:42)
[2023-06-04] MEDS: IPRATROPIUM NEB FS 0.5 MG/2.5 ML AMPUL.NEB NEB SCH (03:42)
[2023-06-04 04:37] LABS: BASOPHILS # (AUTO) 0.5 K/uL (0.0-0.2); BASOPHILS % (AUTO) 1.5 % (0.0-2.0); EOSINOPHILS % (AUTO) 0.1 % (0.0-6.0); HEMATOCRIT 54 % (39-51); HEMOGLOBIN 17.6 g/dL (13.5-17.5); LYMPHOCYTES # (AUTO) 1.8 K/uL (0.8-4.8); LYMPHOCYTES % (AUTO) 5.7 % (20.0-44.0); MEAN CORPUSCULAR HEMOGLOBIN 31 PG (26.0-33.0); MEAN CORPUSCULAR HGB CONC 32 g/dl (31.0-36.0); MEAN CORPUSCULAR VOLUME 97 fL (80-96); MONOCYTES # (AUTO) 2.8 K/uL (0.1-1.30); MONOCYTES % (AUTO) 9.1 % (2.0-12.0); NEUTROPHILS # (AUTO) 26.2 K/uL (1.8-8.9); NEUTROPHILS % (AUTO) 83.6 % (43.0-81.0); PLATELET COUNT (AUTO) 112 K/uL (150-450); RED BLOOD CELL COUNT(AUTO) 5.61 MIL/uL (4.5-6.0); RED CELL DISTRIBUTION WIDTH 15.5 % (11.5-15.0)
[2023-06-04 04:57] LABS: ALBUMIN 2.4 g/dL (3.4-5.0); BILIRUBIN,TOTAL 2.2 mg/dL (0.2-1.0); CALCIUM, SERUM 9.2 mg/dL (8.5-10.1); CREATININE 3.3 mg/dL (0.6-1.3); MAGNESIUM 3.2 mg/dL (1.8-2.4); TOTAL PROTEIN, SERUM 7.7 g/dL (6.4-8.2)
[2023-06-04 05:10] LABS: WHITE BLOOD COUNT (AUTO) 31.3 K/uL (4.3-11.0)
[2023-06-04 05:11] LABS: PHOSPHORUS 8.9 mg/dL (2.5-4.9)
[2023-06-04] MEDS ORDERED: SODIUM BICARBONATE SYR 50 MEQ/50 ML DISP.SYRIN IV ONE (08:40)
[2023-06-04] MEDS ORDERED: EPINEPHRINE (1:10,000) SYRINGE 1 MG/10 ML DISP.SYRIN IVP ONE (08:40)
[2023-06-04 13:10] LABS: ANISOCYTOSIS 1+; BASOPHILS % (MANUAL) 0 % (0.0-2.0); EOSINOPHILS % (MANUAL) 3 % (0-4); LYMPHOCYTES % (MANUAL) 6 % (16-48); MONOCYTES % (MANUAL) 10 % (0-11.0); NEUTROPHILS % (MANUAL) 81 (42-76); PLATELET ESTIMATE DECREASED
== END 2023-06-04 04:30 | DRG 130 ==
LOC: ER 13:05 → ICU 18:10
PROVIDERS: ATTEND Nurse Practitioner Family
PROC: 5A1955Z Respiratory Ventilation, Greater than 96 Consecutive Hours (ICD-10-PCS; principal; 2023-05-27)
PROC: 0BH17EZ Insertion of Endotracheal Airway into Trachea, Via Natural or Artificial Opening (ICD-10-PCS; 2023-05-27)
PROC: 5A09357 Assistance with Respiratory Ventilation, Less than 24 Consecutive Hours, Continuous Positive Airway Pressure (ICD-10-PCS; 2023-05-27)
PROC: 05H633Z Insertion of Infusion Device into Left Subclavian Vein, Percutaneous Approach (ICD-10-PCS; 2023-05-30)
PROC: B547ZZA Ultrasonography of Left Subclavian Vein, Guidance (ICD-10-PCS; 2023-05-30)
PROC: 02HV33Z Insertion of Infusion Device into Superior Vena Cava, Percutaneous Approach (ICD-10-PCS; 2023-06-03)
PROC: B548ZZA Ultrasonography of Superior Vena Cava, Guidance (ICD-10-PCS; 2023-06-03)
PROC: 5A12012 Performance of Cardiac Output, Single, Manual (ICD-10-PCS; 2023-06-04)
DX: J96.21 Acute and chronic respiratory failure with hypoxia (principal); N17.0 Acute kidney failure with tubular necrosis; J69.0 Pneumonitis due to inhalation of food and vomit; I21.A1 Myocardial infarction type 2; I13.0 Hypertensive heart and chronic kidney disease with heart failure and stage 1 through stage 4 chronic kidney disease, or unspecified chronic kidney disease; I50.33 Acute on chronic diastolic (congestive) heart failure; E66.2 Morbid (severe) obesity with alveolar hypoventilation; J96.22 Acute and chronic respiratory failure with hypercapnia; N18.9 Chronic kidney disease, unspecified; I47.20 Ventricular tachycardia, unspecified; Z87.891 Personal history of nicotine dependence; Z68.45 Body mass index [BMI] 70 or greater, adult; M89.8X9 Other specified disorders of bone, unspecified site; E87.4 Mixed disorder of acid-base balance; J44.0 Chronic obstructive pulmonary disease with (acute) lower respiratory infection
CPT/HCPCS: 31720; 36410; 36415; 36569; 36600; 71045-TC; 76770-TC; 80048-TC; 80053-TC; 80076-TC; 80202-TC; 82550-TC; 82570-TC; 82803-TC; 82962-TC; 83605-TC; 83735-TC; 83880; 83970; 84100-TC; 84155; 84165; 84300-TC; 84478-TC; 84484-TC; 85025-TC; 85730-TC; 87040-TC; 87081-TC; 93307-TC; 93970-TC; 94002-TC; 94003-TC; 94760-TC; 94799-TC; A4223; A9563; C1751; C9113; G0378; J0171; J0330; J0692; J1120; J1650; J1940; J1956; J2930; J3370; J3490; J7030; J7050; J7060